=== PATIENT | male | born 1960 | race Caucasian/White ===

== ENCOUNTER → 2017-07-10 | Day surgery (SDC) | payer MEDICARE, OTHER ==
[~2017-07-10] MED LIST: LACTATED RINGERS 1,000 ML IV SCH; LIDOCAINE 1% 20 ML VIAL (10MG/ML) FOR IV START INTRADERMA PRN; LIDOCAINE 1% INJ 10MG/ML (20 ML MDV) ONE; MIDAZOLAM 2 MG/2 ML VIAL ONE; PROPOFOL 10 MG/ML 20 ML VIAL IV ONE
[2017-07-10 07:42] VITALS: TEMP 96.3
[2017-07-10 07:45] LABS: Glucose,Whole Blood 95 mg/dL (75-99)
--- NOTE | 2017-07-10 09:24 | P.PCN ---
Date of Procedure: 07/10/17 Procedure(s) Performed: Procedure: Total colonoscopy and polypectomy. Preoperative diagnosis: Screening for neoplasia, patient has history of polyps. Postoperative diagnosis: 1. Small polyp around the hepatic flexure snared but no large polyps or cancer. 2. Sigmoid diverticulosis with no evidence of acute diverticulitis or strictures. Preparation: HalfLytely prep. Sedation: Was provided by anesthesia. Brief clinical history: The patient is a 56-year-old male who was initially referred for colonoscopy for screening for neoplasia because of history of polyps. On a prior exam in December 2014, when he was still living in [place], 9 polyps removed. Apparently, he had polyps removed as far back as when he started his screening exams at age 48 and he has had these exams every year or so with polyps found each time. On his first exam with me in May 2016, his preparation was poor and that is the reason I suggested we repeat this exam in 1-2 years. At this time, he has no abdominal complaints bleeding or anemia. Procedure: With the patient on his left lateral decubitus position and after informed consent and adequate sedation, the perianal area was inspected and it did not show any fissures or fistulas. There were no masses felt on digital rectal examination. The Olympus CFQ 160L video colonoscope was then inserted in the rectum in the usual fashion and advanced to the cecum. The preparation was much improved compared to last time and I was able to see all areas examined without difficulty. There was a small polyp around the hepatic flexure which was snared and retrieved by suction and there was sigmoid diverticulosis but there was no large polyps or cancer or any evidence of acute diverticulitis or strictures. I retroflexed the endoscope in the rectum before the endoscope was withdrawn. The patient tolerated the procedure well. Plan: Based on his history and in light of the finding today, I am recommending repeat exam in 3 years. He will follow up with you as planned.
[2017-07-10 09:30] VITALS: RESP 18
[2017-07-10 09:31] VITALS: BP 110/70; PULSE 77
== END ==
LOC: ORWHC2ENDO 07:22
DX: Z12.11 Encounter for screening for malignant neoplasm of colon (principal); D12.3 Benign neoplasm of transverse colon; K57.30 Diverticulosis of large intestine without perforation or abscess without bleeding; Z86.010 Personal history of colon polyps; E11.9 Type 2 diabetes mellitus without complications; I10 Essential (primary) hypertension; E78.5 Hyperlipidemia, unspecified; M19.90 Unspecified osteoarthritis, unspecified site; E07.9 Disorder of thyroid, unspecified; Z79.84 Long term (current) use of oral hypoglycemic drugs; Z79.899 Other long term (current) drug therapy; Z72.0 Tobacco use
CPT/HCPCS: 88305; 45385; J2250; J2001; J2704

== ENCOUNTER → 2018-01-09 | Outpatient (CLI) | payer MEDICARE ==
--- NOTE | 2018-01-09 08:49 | CT ---
EXAMINATION TYPE: CT sacrum wo con DATE OF EXAM: 01/09/2018 COMPARISON: None HISTORY: Patient complains of low back pain. CT DLP: 212.2 mGycm Automated exposure control for dose reduction was used. FINDINGS: There is mild degenerative change of the sacroiliac joints with small bridging anterior osteophytes a nd opposing surface sclerosis. No vacuum disc phenomenon or subchondral cystic change. No significant joint space narrowing or widening. No evidence of acute fracture or dislocation of the sacrum. No ev idence of sacroiliac joint fusion. There are mild degenerative changes of the femoral acetabular join t with joint space narrowing and acetabular marginal osteophytes. The iliac bones appear intact as do es the visualized portion of the entirety of the pelvis. Vertebral body height of L5 is maintained. N o healed chronic fracture deformity is present. No suspicious osseous lesion is seen. Mild degenerati ve changes of the lumbosacral junction are noted with at least broad-based disc bulge at L5-S1 result ing in at least moderate bilateral neural foraminal narrowing, this would be better characterized wit h MRI. Similarly at L4-L5 there is at least moderate bilateral neural foraminal narrowing due to dege nerative disc disease. Moderate atherosclerosis is seen of the visualized lower portions of the abdominal aorta and its bran ches. Appendix is seen, air-filled and within normal limits. Left gluteal subcutaneous nerve stimulat or is partially visualized. IMPRESSION: 1. 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 NO SUSPICIOUS OSSEOUS LESION. 2. MODERATE DEGENERATIVE DISC DISEASE IN THE VISUALIZED LUMBOSACRAL SPINE (L4-L5 AND L5-S1) RESULTING IN AT LEAST MODERATE BILATERAL NEURAL FORAMINAL NARROWING AT THESE LEVELS. IF THERE IS FURTHER RODOLFO RN MRI COULD EVALUATE FOR DISC HERNIATION AND BETTER ASSESS DEGREE OF NEURAL FORAMINAL NARROWING/SPIN AL CANAL STENOSIS.
== END | disposition home or self-care (01) ==
LOC: RADCTMAIN 07:51
PROVIDERS: ATTEND Family Medicine
DX: M99.73 Connective tissue and disc stenosis of intervertebral foramina of lumbar region (principal); M51.37 Other intervertebral disc degeneration, lumbosacral region; M25.859 Other specified joint disorders, unspecified hip; M53.3 Sacrococcygeal disorders, not elsewhere classified; G89.29 Other chronic pain
CPT/HCPCS: 72192

== ENCOUNTER 2019-04-27 13:09 | Inpatient (IN) | payer MEDICARE ==
[2019-04-27] MEDS ORDERED: IPRATROPIUM 0.5 MG/2.5 ML NEBU INHALATION STA (13:31)
[2019-04-27] MEDS ORDERED: ALBUTEROL NEBULIZED 2.5 MG/3 ML INHALATION STA (13:31)
--- NOTE | 2019-04-27 14:03 | ED ---
General Adult HPI - General Chief complaint: Chest Pain Stated complaint: PEACE, Sent by PCP Time Seen by Provider: 04/27/19 13:15 Source: patient, RN notes reviewed Mode of arrival: wheelchair Limitations: no limitations - History of Present Illness Initial comments: Is a 58-year-old male who presents emergency Department complaining of shortness of breath. Patient states started about 2 weeks ago. Patient states he flew to the [facility] about 2 months ago at about 2 weeks ago started being short of breath. Patient states returned from the [facility] yesterday and the shortness of breath continues. Patient denies any chest pain or palpitations. Patient denies any fever chills per patient denies any history of any heart problems. Patient states he is a smoker. Patient denies any abdominal pain. Patient denies nausea vomiting diarrhea. Patient denies any lightheadedness dizziness or near syncopal episode. Patient denies any swelling to the legs or calf tenderness. - Related Data Home Medications Medication Instructions Recorded Confirmed QUEtiapine FUMARATE [SEROquel] 200 mg PO HS 04/27/19 04/27/19 Allergies Allergy/AdvReac Type Severity Reaction Status Date / Time No Known Allergies Allergy Verified 04/27/19 14:17 Review of Systems ROS Statement: Those systems with pertinent positive or pertinent negative responses have been documented in the HPI. ROS Other: All systems not noted in ROS Statement are negative. Past Medical History Past Medical History: Diabetes Mellitus, Hyperlipidemia, Hypertension, Osteoarthritis (OA), Thyroid Disorder Additional Past Medical History / Comment(s): HX POLYPS, HX BACK PAIN, HAS IMPLANTED DEVICE FOR PAIN, TMJ HAS BITE SPLINT History of Any Multi-Drug Resistant Organisms: None Reported Past Surgical History: Back Surgery, Orthopedic Surgery, Tonsillectomy Additional Past Surgical History / Comment(s): colonoscopies; shoulder and ankle surgery Past Anesthesia/Blood Transfusion Reactions: No Reported Reaction Past Psychological History: Bipolar Smoking Status: Current every day smoker Past Alcohol Use History: None Reported Past Drug Use History: None Reported - Past Family History Mother Family Medical History: No Reported History General Exam - General Exam Comments Initial Comments: GENERAL: Patient is well-developed and well-nourished. Patient is nontoxic and well- hydrated and is in mild distress. ENT: Neck is soft and supple. No significant lymphadenopathy is noted. Oropharynx is clear. Moist mucous membranes. Neck has full range of motion without eliciting any pain. EYES: The sclera were anicteric and conjunctiva were pink and moist. Extraocular movements were intact and pupils were equal round and reactive to light. E yelids were unremarkable. PULMONARY: Unlabored respirations. Good breath sounds bilaterally. Patient has expiratory wheezing. CARDIOVASCULAR: There is a regular rate and rhythm without any murmurs gallops or rubs. ABDOMEN: Soft and nontender with normal bowel sounds. SKIN: Skin is clear with no lesions or rashes and otherwise unremarkable. NEUROLOGIC: Patient is alert and oriented x3. Cranial nerves II through XII are grossly intact. Motor and sensory are also intact. Normal speech, volume and content. Symmetrical smile. MUSCULOSKELETAL: Normal extremities with adequate strength and full range of motion. LYMPHATICS: No significant lymphadenopathy is noted PSYCHIATRIC: Normal psychiatric evaluation. Limitations: no limitations Course Vital Signs 04/27/19 04/27/19 04/27/19 13:15 13:59 14:19 Temperature 99.0 F Pulse Rate 112 H 106 H 104 H Respiratory 26 H 16 16 Rate Blood Pressure 139/82 147/104 O2 Sat by Pulse 98 99 Oximetry 04/27/19 04/27/19 14:33 16:19 Temperature Pulse Rate 105 H 106 H Respiratory 18 16 Rate Blood Pressure 141/98 O2 Sat by Pulse 96 Oximetry Medical Decision Making - Medical Decision Making EKG shows sinus tachycardia at 106 bpm TX interval 170 QRS 96 QT interval 352 QTC is 467. Patient's EKG shows no ST segment elevation or depression however there is T-wave inversion in V6 Chest x-ray looked like acute pulmonary edema. Patient's d-dimer is elevated so I did a CAT scan and confirmed acute pulmonary edema and there was no sign of any pulmonary embolus. I gave the patient Lasix and Nitropaste. I spoke with Dr. Connell he agreed to admit the patient admitted the patient I wrote admitting her to consult cardiology and continue the Lasix and Nitropaste on the floor. - Lab Data Result diagrams: 04/27/19 14:04 04/27/19 14:04 Lab Results 04/27/19 04/27/19 04/27/19 Range/Units 14:04 14:04 14:04 WBC 6.3 (3.8-10.6) k/uL RBC 4.78 (4.30-5.90) m/uL Hgb 14.1 (13.0-17.5) gm/dL Hct 43.9 (39.0-53.0) % MCV 91.8 (80.0-100.0) fL MCH 29.6 (25.0-35.0) pg MCHC 32.2 (31.0-37.0) g/dL RDW 13.5 (11.5-15.5) % Plt Count 215 (150-450) k/uL Neutrophils % 64 % Lymphocytes % 20 % Monocytes % 5 % Eosinophils % 8 % Basophils % 1 % Neutrophils # 4.0 (1.3-7.7) k/uL Lymphocytes # 1.3 (1.0-4.8) k/uL Monocytes # 0.3 (0-1.0) k/uL Eosinophils # 0.5 (0-0.7) k/uL Basophils # 0.1 (0-0.2) k/uL PT 12.2 H (9.0-12.0) sec INR 1.2 H (<1.2) APTT 23.2 (22.0-30.0) sec D-Dimer 1.09 H (<0.60) mg/L FEU Sodium 140 (137-145) mmol/L Potassium 5.1 (3.5-5.1) mmol/L Chloride 108 H (98-107) mmol/L Carbon Dioxide 22 (22-30) mmol/L Anion Gap 10 mmol/L BUN 19 (9-20) mg/dL Creatinine 1.02 (0.66-1.25) mg/dL Est GFR (CKD-EPI)AfAm >90 (>60 ml/min/1.73 sqM) Est GFR (CKD-EPI)NonAf 80 (>60 ml/min/1.73 sqM) Glucose 102 H (74-99) mg/dL Calcium 9.6 (8.4-10.2) mg/dL Magnesium 1.9 (1.6-2.3) mg/dL Total Bilirubin 1.1 (0.2-1.3) mg/dL AST 49 (17-59) U/L ALT 54 (21-72) U/L Alkaline Phosphatase 113 (38-126) U/L Troponin I (0.000-0.034) ng/mL NT-Pro-B Natriuret Pep pg/mL Total Protein 6.9 (6.3-8.2) g/dL Albumin 3.9 (3.5-5.0) g/dL 04/27/19 04/27/19 Range/Units 14:04 14:04 WBC (3.8-10.6) k/uL RBC (4.30-5.90) m/uL Hgb (13.0-17.5) gm/dL Hct (39.0-53.0) % MCV (80.0-100.0) fL MCH (25.0-35.0) pg MCHC (31.0-37.0) g/dL RDW (11.5-15.5) % Plt Count (150-450) k/uL Neutrophils % % Lymphocytes % % Monocytes % % Eosinophils % % Basophils % % Neutrophils # (1.3-7.7) k/uL Lymphocytes # (1.0-4.8) k/uL Monocytes # (0-1.0) k/uL Eosinophils # (0-0.7) k/uL Basophils # (0-0.2) k/uL PT (9.0-12.0) sec INR (<1.2) APTT (22.0-30.0) sec D-Dimer (<0.60) mg/L FEU Sodium (137-145) mmol/L Potassium (3.5-5.1) mmol/L Chloride (98-107) mmol/L Carbon Dioxide (22-30) mmol/L Anion Gap mmol/L BUN (9-20) mg/dL Creatinine (0.66-1.25) mg/dL Est GFR (CKD-EPI)AfAm (>60 ml/min/1.73 sqM) Est GFR (CKD-EPI)NonAf (>60 ml/min/1.73 sqM) Glucose (74-99) mg/dL Calcium (8.4-10.2) mg/dL Magnesium (1.6-2.3) mg/dL Total Bilirubin (0.2-1.3) mg/dL AST (17-59) U/L ALT (21-72) U/L Alkaline Phosphatase (38-126) U/L Troponin I 0.016 (0.000-0.034) ng/mL NT-Pro-B Natriuret Pep 6800 pg/mL Total Protein (6.3-8.2) g/dL Albumin (3.5-5.0) g/dL Critical Care Time Critical Care Time: Yes Total Critical Care Time: 35 Disposition Clinical Impression: Acute pulmonary edema Disposition: ADMITTED IP TO THIS HOSP Referrals: Meka Pulido MD [Primary Care Provider] - 1-2 days Time of Disposition: 16:50
[2019-04-27 14:21] LABS: Basophils # (A) 0.1 k/uL (0-0.2); Basophils % (A) 1 %; Eosinophils # (A) 0.5 k/uL (0-0.7); Eosinophils % (A) 8 %; HCT 43.9 % (39.0-53.0); HGB 14.1 gm/dL (13.0-17.5); Lymphocytes # (A) 1.3 k/uL (1.0-4.8); Lymphocytes % (A) 20 %; MCH 29.6 pg (25.0-35.0); MCHC 32.2 g/dL (31.0-37.0); MCV 91.8 fL (80.0-100.0); Mean Platelet Volume 8.3; Monocytes # (A) 0.3 k/uL (0-1.0); Monocytes % (A) 5 %; Neutrophils % (A) 64 %; Platelet Count 215 k/uL (150-450); RBC 4.78 m/uL (4.30-5.90); RDW 13.5 % (11.5-15.5); WBC 6.3 k/uL (3.8-10.6)
[2019-04-27 14:34] LABS: INR 1.2 (<1.2); Partial Thromboplastin Time 23.2 sec (22.0-30.0); Prothrombin Time 12.2 sec (9.0-12.0)
[2019-04-27 14:36] LABS: ALT 54 U/L (21-72); AST 49 U/L (17-59); African American GFR (CKD) >90 (>60 ml/min/1.73 sqM); Albumin 3.9 g/dL (3.5-5.0); Alkaline Phosphatase 113 U/L (38-126); Anion Gap 10 mmol/L; Blood Urea Nitrogen 19 mg/dL (9-20); Calcium 9.6 mg/dL (8.4-10.2); Carbon Dioxide 22 mmol/L (22-30); Chloride 108 mmol/L (98-107); Glucose 102 mg/dL (74-99); Magnesium 1.9 mg/dL (1.6-2.3); Potassium 5.1 mmol/L (3.5-5.1); Sodium 140 mmol/L (137-145); Total Bilirubin 1.1 mg/dL (0.2-1.3); Total Protein 6.9 g/dL (6.3-8.2)
[2019-04-27 14:55] LABS: D-Dimer 1.09 mg/L FEU (<0.60)
--- NOTE | 2019-04-27 14:55 | XR ---
EXAMINATION TYPE: XR chest 2V DATE OF EXAM: 04/27/2019 COMPARISON: Prior chest x-ray May 14, 2016 HISTORY: Cough and shortness of breath. TECHNIQUE: Frontal and lateral views of the chest are obtained. FINDINGS: There is spinal stimulator device overlying mid to lower thoracic spinal canal. Cardiac si lhouette size is enlarged. Increased central vascular congestion and interstitial edema is thought pr esent. No pleural effusion or pneumothorax. IMPRESSION: Suspect CHF exacerbation as there is mild cardiomegaly with new central vascular congest ion and mild to moderate interstitial edema. Correlate clinically.
--- NOTE | 2019-04-27 15:36 | CT ---
EXAMINATION TYPE: CT chest angio for PE DATE OF EXAM: 04/27/2019 COMPARISON: NONE HISTORY: SOB, cough, Elevated d-dimer CT DLP: 399.1 mGycm. Automated Exposure Control for Dose Reduction was Utilized. CONTRAST: CTA scan of the thorax is performed with IV Contrast, patient injected with 80 mL of Isovue 370, pulm onary embolism protocol. MIP Images are created on CT scanner and reviewed. FINDINGS: LUNGS: There are geographic groundglass opacities and a moderate right pleural effusion as well as sm all left pleural effusion. These findings in combination with four-chamber cardiomegaly as well as CT findings of right heart failure with reflux of contrast into the inferior vena cava suggest decompen sated congestive heart failure. Nodular opacities are seen in the lingula and left lung base such as on image 82 and most confluent i n the lingula on image 74 infectious etiology such as pneumonia or inflammatory etiology or possible. Diffuse peribronchial cuffing also could be reactive or infectious. Interlobular septal thickening i s present throughout. MEDIASTINUM: There is satisfactory enhancement of the pulmonary artery and its branches, there is no CT evidence for pulmonary embolism. Mediastinal adenopathy is seen with the largest lymph node in the left paratracheal space measuring 2.0 cm in short axis. Other numerous scattered enlarged lymph node s are seen such as in the right paratracheal space measuring 1.8 cm in short axis. There is four-puja munir) cardiomegaly and a small pericardial effusion. Severe coronary calcifications are evident. OTHER: Spleen approaches criteria for splenomegaly measuring 13.5 cm in longitudinal dimension. Trace perihepatic ascites and central mesenteric congestion is seen. Small amount of fluid is also seen ar ound the gallbladder. Old healed anterior right rib fractures and moderate degenerative changes of the spine with bridging anterior osteophytes suggesting diffuse idiopathic skeletal hyperostosis. IMPRESSION: 1. Findings suggesting fluid overload and composition congestive heart failure with diffuse moderate interstitial edema and pleural effusions, right greater than left. 2. Lingular and left basilar reticular nodular opacities. These could be infectious/inflammatory in e tiology on the basis of pneumonia or neoplastic. Follow-up CT is recommended after treatment to asses s for resolution. There is extensive mediastinal adenopathy concerning for neoplastic involvement giv en the size versus reactive adenopathy. These can be recess and the short-term follow-up after treatm ent for pneumonia. 3. Small pericardial effusion and severe coronary artery calcifications, marker of coronary artery di sease. Four chamber cardiomegaly. 4. Trace perihepatic ascites partially visualized and periportal congestion. Some fluid is seen aroun d the gallbladder. Correlate with right upper quadrant pain to determine the need for ultrasound. 5. No evidence of pulmonary embolus.
[2019-04-27] MEDS ORDERED: FUROSEMIDE 10 MG/ML 4 ML VIAL IV STA (15:41)
[2019-04-27] MEDS: NITROGLYCERIN OINT 1 INCH/GM PACKET TOPICAL SCH ×2 (18:47→23:04)
[2019-04-27] MEDS ORDERED: NICOTINE 21MG/24HR PATCH TRANSDERM STA (18:56)
[2019-04-27] MEDS: FUROSEMIDE 10 MG/ML 4 ML VIAL IV SCH (23:04)
[2019-04-27] MEDS: QUEtiapine 200 MG TAB PO SCH (23:04)
[2019-04-28] MEDS: NICOTINE 21MG/24HR PATCH TRANSDERM SCH (08:30)
[2019-04-28] MEDS: NITROGLYCERIN OINT 1 INCH/GM PACKET TOPICAL SCH ×2 (08:30→08:32)
[2019-04-28] MEDS: FUROSEMIDE 10 MG/ML 4 ML VIAL IV SCH ×3 (08:30→22:52)
[2019-04-28 10:17] VITALS: BMI 26.3
[2019-04-28] MEDS: METOPROLOL SUCCINATE (ER) 25 MG TAB.ER.24H PO SCH (12:13)
[2019-04-28] MEDS: LISINOPRIL 5 MG TAB PO SCH (12:13)
[2019-04-28] MEDS ORDERED: ATORVASTATIN 80 MG TAB PO STA (12:49)
[2019-04-28] MEDS ORDERED: ASPIRIN 325 MG TAB PO STA (12:49)
[2019-04-28] MEDS ORDERED: NITROGLYCERIN SL TABS 0.4 MG TAB SUBLINGUAL PRN (12:49)
[2019-04-28] MEDS ORDERED: ALPRAZolam 0.25 MG TAB PO PRN (12:49)
[2019-04-28] MEDS ORDERED: SODIUM CHLORIDE 0.9% 1,000 ML in EMPTY BAG 1 BAG IV ONE ×2 (12:49→14:15)
[2019-04-28] MEDS ORDERED: ALPRAZolam 0.5 MG TAB PO PRN (12:49)
--- NOTE | 2019-04-28 13:14 | CONS ---
CONSULTATION CHIEF COMPLAINT: Shortness of breath. Caden is a 58-year-old gentleman with no significant past medical history who presented to the hospital complaining of shortness of breath. He was in [facility] on business and returned home about 2 to 3 weeks ago. While in [facility] he had episodes of precordial chest pressure, did not want to see the doctor there, subsequently became short of breath. His shortness of breath has gotten progressively worse and yesterday it was severe. Hence, he came to the ER. He was found to be in acute pulmonary edema and is admitted to hospital for the same. He is treated with intravenous Lasix with significant improvement in his symptoms. He has not had any episodes of chest discomfort since being admitted to the hospital. An EKG shows sinus tachycardia with poor R-wave progression suggestive of anteroseptal myocardial infarction. I have ordered an echo and the echo results are pending. Patient had elevated D-dimer on his initial presentation, went on to have a CT scan of the chest that was negative for pulmonary embolism. The patient's clinical presentation is suggestive of recent myocardial infarction with pulmonary edema. I anticipate LV systolic dysfunction on his echocardiogram. I am going to obtain an echo on him. I will review the echocardiogram. In the meantime, I will treat him with beta blockers, MARTA inhibitors and treat him with IV Lasix and start an aspirin. I advised him to undergo cardiac catheterization tomorrow for further evaluation. I have explained risks, benefits and alternatives understood and accepted. PAST MEDICAL HISTORY: Negative for diabetes, hypertension, dyslipidemia. MEDICATIONS: He is on Seroquel. ALLERGIES: None. FAMILY HISTORY: Significant for premature coronary artery disease. SOCIAL HISTORY: Significant for smoking. There is no history of EtOH abuse or drug abuse. REVIEW OF SYSTEMS: HEENT is unremarkable. CARDIAC: As described above. RESPIRATORY: As described above. GI: Negative. GENITOURINARY: Negative. ALLERGY/IMMUNOLOGY: Negative. SKIN: Negative. MUSCULOSKELETAL: Negative. ENDOCRINE: Negative. HEMATOLOGICAL: Negative. DERM: Negative. CONSTITUTIONAL: Negative. ONCOLOGICAL: Negative. Rest of the system review is not relevant. PHYSICAL EXAMINATION: On exam, patient is comfortable at rest. Heart rate is 100 beats per minute. Blood pressure is 118/79. Respiratory rate is 18. O2 sat is 95% on room air. There is no jugular venous distention. Carotid upstroke is normal. There is no bruit. Chest Exam: There are bilateral diffuse rhonchi and basal crackles that have gotten better from yesterday.. Heart exam reveals first and second heart sounds. No gallop. Has a systolic murmur at the apex. Abdomen is soft. Examination of extremities did not reveal any edema. Peripheral pulses are felt. CALENDER INSPECTOR exam did not reveal focal neurological deficits. EKG as described above. Labs showed that the hemoglobin is 14.1, platelet count is 215. Potassium is 5.1. Creatinine is 1. BNP is elevated at 6800. Troponin is 0.016. TSH is not done. AST, ALT are within normal limits. ASSESSMENT: 1. Acute onset pulmonary edema, probably secondary to systolic dysfunction. 2. Abnormal EKG suggestive of anteroseptal myocardial infarction. PLAN: I will continue the patient on aggressive medical therapy. Obtain an echocardiogram. Schedule him for cath. ANDREAS / JIMMY: [id number] /
[2019-04-28 13:29] LABS: Cholesterol 158 mg/dL (<200); HDL Cholesterol 25 mg/dL (40-60); LDL Cholesterol,Calculated 117 mg/dL (0-99); Triglycerides 81 mg/dL (<150)
--- NOTE | 2019-04-28 14:09 | ECHOF ---
Referral Reason:Pulmonary edema MEASUREMENTS -------- HEIGHT: 170.2 cm WEIGHT: 75.7 kg BP: RVIDd: 3.8 cm (< 3.3) IVSd: 0.8 cm (0.6 - 1.1) LVIDd: 5.6 cm (3.9 - 5.3) LVPWd: 1.4 cm (0.6 - 1.1) IVSs: 1.2 cm LVIDs: 5.0 cm LVPWs: 1.6 cm LA Diam: 4.7 cm (2.7 - 3.8) LAESV Index (A-L): 42.84 ml/m Ao Diam: 2.7 cm (2.0 - 3.7) AV Cusp: 1.6 cm (1.5 - 2.6) LA Diam: 4.3 cm (2.7 - 3.8) MV EXCURSION: 14.577 mm (> 18.000) MV EF SLOPE: 93 mm/s (70 - 150) EPSS: 1.7 cm MV E Jaden: 1.03 m/s MV DecT: 99 ms MV A Jaden: 0.02 m/s MV E/A Ratio: 45.64 RAP: 5.00 mmHg RVSP: 25.15 mmHg FINDINGS -------- Sinus rhythm. This was a technically good study. The left ventricle is mildly dilated. Left ventricular wall thickness is normal. There is severe global hypokinesis of LV . Overall left ventricular systolic function is severely impaired with, an EF between 20 - 25 %. The right ventricle is normal in size. The left atrium is markedly dilated. LA is severely dilated >40 ml/m2 The right atrial size is normal. There is mild aortic valve sclerosis. There is no evidence of aortic regurgitation. Mild mitral annular calcification present. [id number] mitral regurgitation is present. Mild tricuspid regurgitation present. Right ventricular systolic pressure is normal at < 35 mmHg. There is no evidence of pulmonary hypertension. There is no pulmonic regurgitation present. The aortic root size is normal. There is no pericardial effusion. CONCLUSIONS -------- 1. Sinus rhythm. 2. This was a technically good study. 3. Left ventricular wall thickness is normal. 4. There is severe global hypokinesis of LV . 5. Overall left ventricular systolic function is severely impaired with, an EF between 20 - 25 %. 6. The right ventricle is normal in size. 7. The left atrium is markedly dilated. 8. LA is severely dilated >40 ml/m2 9. The right atrial size is normal. 10. There is mild aortic valve sclerosis. 11. Mild mitral annular calcification present. 12. [id number] mitral regurgitation is present. 13. Mild tricuspid regurgitation present. 14. Right ventricular systolic pressure is normal at < 35 mmHg. 15. There is no evidence of pulmonary hypertension. 16. There is no pulmonic regurgitation present. 17. The aortic root size is normal. 18. There is no pericardial effusion. BILL CHECKER: Isabella Chapin RDCS
[2019-04-28] MEDS: ASPIRIN 81 MG PO SCH (14:10)
--- NOTE | 2019-04-28 23:48 | P.HPIM ---
History of Present Illness H&P Date: 04/28/19 Chief Complaint: shortness of breath Caden Agosto is a 58 yo M who presents to the ED complaining of 2 week history of shortness of breath and orthopnea. He states he had been traveling in the [facility] and approx 2 weeks ago had an episode of chest pain which lasted approximately 20 mins while he was lifting heavy blocks helping to build a house. He did not see a doctor or have any treatment at that time. He states since then he has felt more winded and has been experiencing progressive shortness of breath. He denies further episodes of chest pain. He is a current 1.5 PPD smoker. In the ED vitals stable, trop negative, BNP [address] chest with bilateral pleural effusions. Review of Systems All systems: negative Constitutional: Reports weakness, Denies chills, Denies fever Eyes: denies blurred vision, denies pain Ears, nose, mouth and throat: Denies headache, Denies sore throat Cardiovascular: Reports chest pain, Reports dyspnea on exertion, Denies shortness of breath Respiratory: Reports dyspnea, Denies cough Gastrointestinal: Denies abdominal pain, Denies diarrhea, Denies nausea, Denies vomiting Musculoskeletal: Denies myalgias Integumentary: Denies pruritus, Denies rash Neurological: Denies numbness, Denies weakness Psychiatric: Denies anxiety, Denies depression Endocrine: Denies fatigue, Denies weight change Past Medical History Past Medical History: Diabetes Mellitus, Hyperlipidemia, Hypertension, Osteoarthritis (OA), Thyroid Disorder Additional Past Medical History / Comment(s): HX POLYPS, HX BACK PAIN, HAS IMPLANTED DEVICE FOR PAIN, TMJ HAS BITE SPLINT. Patient was a type II DM taking metformin, patient lost weight and is no longer taking PO meds or diet controlled. History of Any Multi-Drug Resistant Organisms: None Reported Past Surgical History: Back Surgery, Orthopedic Surgery, Tonsillectomy Additional Past Surgical History / Comment(s): colonoscopies; shoulder and ankle surgery Past Anesthesia/Blood Transfusion Reactions: No Reported Reaction Past Psychological History: Bipolar Smoking Status: Current every day smoker Past Alcohol Use History: None Reported Additional Past Alcohol Use History / Comment(s): SMOKES 1-2 PPD FROM TEEN YEARS Past Drug Use History: None Reported - Past Family History Mother Family Medical History: No Reported History Medications and Allergies Home Medications Medication Instructions Recorded Confirmed Type QUEtiapine FUMARATE [SEROquel] 200 mg PO HS 04/27/19 04/27/19 History Allergies Allergy/AdvReac Type Severity Reaction Status Date / Time No Known Allergies Allergy Verified 04/27/19 14:17 Physical Exam Vitals: Vital Signs Temp Pulse Resp BP Pulse Ox 04/28/19 19:35 98.0 F 92 16 115/76 97 04/28/19 16:56 97.3 F L 98 16 116/83 100 04/28/19 16:00 18 04/28/19 11:49 98.0 F 103 H 18 118/79 95 04/28/19 08:32 98 16 125/78 96 04/28/19 08:26 18 04/28/19 04:00 98.6 F 93 18 110/68 96 04/28/19 00:00 98.4 F 106 H 18 126/81 99 Intake and Output 04/28/19 04/28/19 04/29/19 14:59 22:59 06:59 Intake Total 378 222 Output Total 2200 1400 Balance -1822 -1178 Intake: Oral 378 222 Output: Urine 2200 1400 Other: Voiding Method Toilet Toilet Urinal Urinal # Voids 3 Weight 76.2 kg General: well nourished, well developed, NAD. Vitals reviewed Eyes: PERRL, EOMI, conjunctiva normal HENT: normocephalic, mucus membranes moist Neck: supple, no JVD Lungs: normal respiratory effort, no wheezes. Fine crackles at bases CV: Regular rate and rhythm, systolic murmur. Peripheral pulses 2+ Abdomen: soft, nondistended, no organomegaly Lymph: no cervical or axillary LAD Skin: warm and dry. Neuro: A&Ox3, normal mood and affect Results CBC & Chem 7: 04/27/19 14:04 04/27/19 14:04 Labs: Abnormal Lab Results - Last 24 Hours (Table) 04/27/19 Range/Units 14:04 LDL Cholesterol, Calc 117 H (0-99) mg/dL HDL Cholesterol 25 L (40-60) mg/dL Microbiology - Last 24 Hours (Table) 04/27/19 14:04 Blood Culture - Preliminary Blood No Growth after 24 hours Thrombosis Risk Factor Assmnt - Choose All That Apply Any of the Below Risk Factors Present?: Yes Each Factor Represents 1 point: Obesity (BMI >25) Other Risk Factors: No Other congenital or acquired thrombophilia - If yes, enter type in comment: Yes Thrombosis Risk Factor Assessment Total Risk Factor Score: 1 Thrombosis Risk Factor Assessment Level: Low Risk Assessment and Plan (1) Acute pulmonary edema Current Visit: Yes Status: Acute Code(s): J81.0 - ACUTE PULMONARY EDEMA SNOMED Code(s): 71911752 Plan: 1. Acute pulmonary edema. Suspect recent MA. Cardiology consulted. Pt started on metoprolol, ASA, lipitor, lisinopril. Continue lasix 2. Bipolar. continue seroquel
[2019-04-29] MEDS: QUEtiapine 200 MG TAB PO SCH (03:05)
[2019-04-29] MEDS ORDERED: ATORVASTATIN 80 MG TAB PO ONE (06:00)
[2019-04-29] MEDS ORDERED: ASPIRIN 325 MG TAB PO ONE (06:00)
[2019-04-29] MEDS ORDERED: SODIUM CHLORIDE 0.9% 1,000 ML in EMPTY BAG 1 BAG IV ONE (06:00)
[2019-04-29 06:34] LABS: HCT 48.9 % (39.0-53.0); HGB 16.1 gm/dL (13.0-17.5); MCH 30.2 pg (25.0-35.0); MCHC 32.9 g/dL (31.0-37.0); MCV 91.7 fL (80.0-100.0); Mean Platelet Volume 7.6; Platelet Count 402 k/uL (150-450); RBC 5.33 m/uL (4.30-5.90); RDW 13.4 % (11.5-15.5); WBC 8.6 k/uL (3.8-10.6)
[2019-04-29 06:41] LABS: ALT 41 U/L (21-72); AST 24 U/L (17-59); African American GFR (CKD) >90 (>60 ml/min/1.73 sqM); Albumin 4.3 g/dL (3.5-5.0); Alkaline Phosphatase 109 U/L (38-126); Anion Gap 12 mmol/L; Blood Urea Nitrogen 27 mg/dL (9-20); Calcium 10.4 mg/dL (8.4-10.2); Carbon Dioxide 29 mmol/L (22-30); Chloride 97 mmol/L (98-107); Glucose 103 mg/dL (74-99); Potassium 4.6 mmol/L (3.5-5.1); Sodium 138 mmol/L (137-145); Total Bilirubin 0.8 mg/dL (0.2-1.3); Total Protein 7.7 g/dL (6.3-8.2)
[2019-04-29] MEDS: METOPROLOL SUCCINATE (ER) 25 MG TAB.ER.24H PO SCH (06:44)
[2019-04-29] MEDS: ASPIRIN 81 MG PO SCH (06:45)
[2019-04-29] MEDS: FUROSEMIDE 10 MG/ML 4 ML VIAL IV SCH ×3 (08:04→23:47)
[2019-04-29] MEDS: NICOTINE 21MG/24HR PATCH TRANSDERM SCH (08:04)
[2019-04-29] MEDS ORDERED: IV FLUID CONTINUATION 400 ML IV ONE (09:04)
[2019-04-29] MEDS ORDERED: MIDAZOLAM 2 MG/2 ML VIAL IVP ONE (09:28)
[2019-04-29] MEDS ORDERED: LIDOCAINE 1% INJ 10MG/ML (20 ML MDV) SQ ONE (09:28)
[2019-04-29] MEDS ORDERED: fentaNYL (PF) 50 MCG/ML 2 ML AMP IVP ONE (09:28)
[2019-04-29] MEDS ORDERED: FUROSEMIDE 10 MG/ML 4 ML VIAL IV ONE (09:59)
[2019-04-29] MEDS ORDERED: IOPAMIDOL-370 125ML BTL INJ ONE (10:01)
[2019-04-29] MEDS ORDERED: RX INFO: IV CONTRAST WAS GIVEN 1 EACH MISC MISCELLANE PRN (10:31)
--- NOTE | 2019-04-29 10:32 | CC ---
CARDIAC CATHETERIZATION REPORT INDICATION: Acute pulmonary edema. PROCEDURE NOTE: After obtaining informed consent, left heart catheterization, coronary angiogram are performed via the right femoral artery using standard Khushboo catheters. A femoral angiogram was performed and decision was made for manual hemostasis. The patient has atherosclerotic plaque in the common femoral artery and we opted for manual hemostasis. Patient received moderate conscious sedation. Total sedation time was 21 minutes. PROCEDURE NOTE: After obtaining informed consent, we had to use a Glidewire to traverse across the common iliac vessels and used a long exchange length wire to exchange the catheters in the aorta. FINDINGS: 1. HEMODYNAMICS: Left ventricular end-diastolic pressure is 16-30 mm. There is no significant gradient across the aortic valve. 2. LEFT VENTRICULOGRAM: Left ventriculogram is not performed. 3. ANGIOGRAPHIC DATA: LEFT MAIN CORONARY ARTERY: Left main coronary artery appears calcified but is free of significant stenosis. Divides into left anterior descending coronary artery and circumflex coronary artery. LAD shows a mild atherosclerotic plaque in its proximal and mid portion. Circumflex coronary artery is totally occluded in its proximal part with [id number] collaterals. Right coronary artery is chronically occluded in its midportion with right to right and [id number] collaterals. There is an ostial stenosis in a large septal perforators. CONCLUSION: Three-vessel coronary artery disease with chronic occlusion of the circumflex coronary artery and [place] right coronary artery with extensive [id number] and [id number] collaterals. PLAN: I reviewed angiographic data with Dr. Lainez, the on-call medical administrator, and if he felt that the patient does not have a vessel that can be revascularized with a catheter. He does not have significant CAD involving significant obstructive lesion in the LAD and does not need bypass surgery. He will be managed with optimal medical therapy and hopefully home over the next 24-48 hours. He has severe LV systolic dysfunction and will need a defibrillator. I am going to use he has a defibrillator and if his LV systolic dysfunction persists after 3 months/ MMDEACONL / IJN: [id number] /
[2019-04-29] MEDS: LISINOPRIL 5 MG TAB PO SCH (12:25)
[2019-04-29] MEDS: SODIUM CHLORIDE 0.9% 1,000 ML IV SCH (12:40)
[2019-04-29] MEDS: ATORVASTATIN 80 MG TAB PO SCH (20:51)
[2019-04-29 21:10] LABS: Glucose,Whole Blood 130 mg/dL (75-99)
--- NOTE | 2019-04-29 21:39 | P.PN ---
Subjective Progress Note Date: 04/29/19 Caden Agosto is a 58 yo M who presents to the ED complaining of 2 week history of shortness of breath and orthopnea. He states he had been traveling in the [facility] and approx 2 weeks ago had an episode of chest pain which lasted approximately 20 mins while he was lifting heavy blocks helping to build a house. He did not see a doctor or have any treatment at that time. He states since then he has felt more winded and has been experiencing progressive shortness of breath. He denies further episodes of chest pain. He is a current 1.5 PPD smoker. In the ED vitals stable, trop negative, BNP [address] chest with bilateral pleural effusions. 04/29. Pt is s/p cath today, tired, reports some mild chest discomfort but overall feeling well. His coronary catheterization did not require any interven tion. Objective - Vital Signs Vital signs: Vital Signs Temp 97.9 F 04/29/19 07:45 Pulse 97 04/29/19 16:00 Resp 16 04/29/19 16:00 BP 117/64 04/29/19 16:00 Pulse Ox 95 04/29/19 16:00 Intake & Output 04/29/19 04/29/19 04/30/19 06:59 18:59 06:59 Intake Total 390 280 Output Total 2400 300 Balance -2400 390 -20 Weight 75.8 kg Intake: IV 100 Oral 290 280 Output: Urine 2400 300 Other: Voiding Method Toilet Urinal Urinal - Exam Gen: resting, alert, NAD HEENT: NC, mmm CV: RRR, no murmur, pulses 2+ Lungs: clear throughout Ext: no edema - Labs CBC & Chem 7: 04/29/19 06:01 04/29/19 06:01 Labs: Abnormal Lab Results - Last 24 Hours (Table) 04/29/19 04/29/19 Range/Units 06:01 21:08 Chloride 97 L (98-107) mmol/L BUN 27 H (9-20) mg/dL Glucose 103 H (74-99) mg/dL POC Glucose (mg/dL) 130 H (75-99) mg/dL Calcium 10.4 H (8.4-10.2) mg/dL Microbiology - Last 24 Hours (Table) 04/27/19 14:04 Blood Culture - Preliminary Blood No Growth after 48 hours Assessment and Plan (1) Acute pulmonary edema Current Visit: Yes Status: Acute Code(s): J81.0 - ACUTE PULMONARY EDEMA SNOMED Code(s): 20005886 (2) Acute systolic CHF (congestive heart failure), NYHA class 1 Current Visit: Yes Status: Acute Code(s): I50.21 - ACUTE SYSTOLIC (CONGESTIVE) HEART FAILURE SNOMED Code(s): 339192913 (3) History of NH (myocardial infarction) Current Visit: Yes Status: Acute Code(s): I25.2 - OLD MYOCARDIAL INFARCTION SNOMED Code(s): 461515229 (4) Bipolar disorder in full remission Current Visit: Yes Status: Acute Code(s): F31.70 - BIPOLAR DISORD, CURRENTLY IN REMIS, MOST RECENT EPISODE UNSP SNOMED Code(s): 31070794 Plan: 1. Acute pulmonary edema. Hx recent NH. Acute systolic CHF. Cardiology following. Echo shows EF 20-25%. Continue metoprolol, ASA, lipitor, lisinopril, lasix. Pt s/p cath today 2. Bipolar. continue seroquel
[2019-04-30] MEDS: QUEtiapine 200 MG TAB PO SCH ×2 (00:53→20:36)
[2019-04-30] MEDS: SODIUM CHLORIDE 0.9% 1,000 ML IV SCH ×3 (03:25→20:38)
[2019-04-30] MEDS: ASPIRIN 81 MG PO SCH (08:23)
[2019-04-30] MEDS: METOPROLOL SUCCINATE (ER) 25 MG TAB.ER.24H PO SCH (08:23)
[2019-04-30] MEDS: FUROSEMIDE 10 MG/ML 4 ML VIAL IV SCH ×2 (08:23→20:50)
[2019-04-30] MEDS: NICOTINE 21MG/24HR PATCH TRANSDERM SCH (09:55)
[2019-04-30] MEDS: SPIRONOLACTONE 25 MG TAB PO SCH (09:55)
[2019-04-30] MEDS: FUROSEMIDE 40 MG TAB PO SCH ×2 (09:58→16:47)
--- NOTE | 2019-04-30 10:18 | PN ---
PROGRESS NOTE Caden is a 58-year-old gentleman who was admitted to hospital with acute pulmonary edema. He underwent cardiac catheterization that revealed severe 2 vessel coronary artery disease that we opted to manage medically. Patient is doing better today, shortness of breath has improved. Does not seem to be in pulmonary edema anymore. PHYSICAL EXAM: Comfortable at rest. Vital signs are stable. Chest exam reveals good air entry bilaterally. Heart exam reveals first and second heart sounds. No gallop. No murmur. Abdomen is soft. Exam of the extremities did not reveal any edema. Peripheral pulses are felt. LABS: Show a hemoglobin of 16.1, potassium is 4.6 creatinine is 0.97. ASSESSMENT: 1. Acute onset systolic heart failure. 2. Two-vessel coronary artery disease for medical therapy. 3. Ischemic cardiomyopathy with severe LV dysfunction. PLAN: I am going to switch the Lasix to p.o. Continue the beta blockers, MARTA inhibitors. Add Aldactone. Continue the aspirin and Lipitor. Hopefully home tomorrow. I am going to have a life vest on him prior to discharge. If his LV function does not improve in 3 months, he will need an AICD. MMDEACONL / JUANN: [id number] /
[2019-04-30 12:13] LABS: Glucose,Whole Blood 168 mg/dL (75-99)
[2019-04-30] MEDS: LISINOPRIL 5 MG TAB PO SCH (16:47)
[2019-04-30 17:22] LABS: Glucose,Whole Blood 134 mg/dL (75-99)
[2019-04-30] MEDS: ATORVASTATIN 80 MG TAB PO SCH (20:36)
[2019-04-30 20:51] LABS: Glucose,Whole Blood 117 mg/dL (75-99)
--- NOTE | 2019-04-30 22:30 | P.PN ---
Subjective Progress Note Date: 04/30/19 Caden Agosto is a 58 yo M who presents to the ED complaining of 2 week history of shortness of breath and orthopnea. He states he had been traveling in the [facility] and approx 2 weeks ago had an episode of chest pain which lasted approximately 20 mins while he was lifting heavy blocks helping to build a house. He did not see a doctor or have any treatment at that time. He states since then he has felt more winded and has been experiencing progressive shortness of breath. He denies further episodes of chest pain. He is a current 1.5 PPD smoker. In the ED vitals stable, trop negative, BNP [address] chest with bilateral pleural effusions. 04/29. Pt is s/p cath today, tired, reports some mild chest discomfort but overall feeling well. His coronary catheterization did not require any interven tion. 04/30. Pt continues to feel well, denies chest pain or shortness of breath. He is hemodynamically stable today, lasix switched to po. Objective - Vital Signs Vital signs: Vital Signs Temp 97.9 F 04/30/19 20:15 Pulse 92 04/30/19 20:15 Resp 16 04/30/19 20:15 BP 95/55 04/30/19 20:15 Pulse Ox 96 04/30/19 20:15 Intake & Output 04/30/19 04/30/19 05/01/19 06:59 18:59 06:59 Intake Total 280 1880 Output Total 1625 1000 Balance -1345 880 Weight 73.4 kg Intake: Oral 280 1880 Output: Urine 1625 1000 Other: Voiding Method Urinal Urinal Urinal # Voids 3 - Exam Gen: resting, alert, NAD HEENT: NC, mmm CV: RRR, no murmur, pulses 2+ Lungs: clear throughout Ext: no edema - Labs CBC & Chem 7: 04/29/19 06:01 04/29/19 06:01 Labs: Abnormal Lab Results - Last 24 Hours (Table) 04/30/19 04/30/19 04/30/19 Range/Units 12:11 17:02 20:50 POC Glucose (mg/dL) 168 H 134 H 117 H (75-99) mg/dL Microbiology - Last 24 Hours (Table) 04/27/19 14:04 Blood Culture - Preliminary Blood No Growth after 72 hours Assessment and Plan (1) Acute pulmonary edema Current Visit: Yes Status: Acute Code(s): J81.0 - ACUTE PULMONARY EDEMA SNOMED Code(s): 36261318 (2) Acute systolic CHF (congestive heart failure), NYHA class 1 Current Visit: Yes Status: Acute Code(s): I50.21 - ACUTE SYSTOLIC (CONGESTIVE) HEART FAILURE SNOMED Code(s): 097875337 (3) History of NC (myocardial infarction) Current Visit: Yes Status: Acute Code(s): I25.2 - OLD MYOCARDIAL INFARCTION SNOMED Code(s): 971730444 (4) Bipolar disorder in full remission Current Visit: Yes Status: Acute Code(s): F31.70 - BIPOLAR DISORD, CURRENTLY IN REMIS, MOST RECENT EPISODE UNSP SNOMED Code(s): 61117747 Plan: 1. Acute pulmonary edema. Hx recent NC. Acute systolic CHF. Cardiology following. Echo shows EF 20-25%. Continue metoprolol, ASA, lipitor, lisinopril, lasix. Discharge planning in progress for tomorrow 2. Bipolar. continue seroquel
[2019-05-01 01:10] VITALS: RESP 18
[2019-05-01 04:51] VITALS: TEMP 97.7
[2019-05-01 05:52] LABS: Glucose,Whole Blood 99 mg/dL (75-99)
[2019-05-01 06:48] LABS: HCT 51.5 % (39.0-53.0); HGB 16.7 gm/dL (13.0-17.5); MCH 29.8 pg (25.0-35.0); MCHC 32.5 g/dL (31.0-37.0); MCV 91.7 fL (80.0-100.0); Mean Platelet Volume 7.7; Platelet Count 332 k/uL (150-450); RBC 5.62 m/uL (4.30-5.90); RDW 13.5 % (11.5-15.5); WBC 10.1 k/uL (3.8-10.6)
[2019-05-01 06:59] LABS: African American GFR (CKD) >90 (>60 ml/min/1.73 sqM); Anion Gap 9 mmol/L; Blood Urea Nitrogen 39 mg/dL (9-20); Carbon Dioxide 31 mmol/L (22-30); Chloride 100 mmol/L (98-107); Glucose 97 mg/dL (74-99); Potassium 5.1 mmol/L (3.5-5.1); Sodium 140 mmol/L (137-145)
[2019-05-01 09:01] VITALS: BP 125/75; PULSE 94
[2019-05-01] MEDS: FUROSEMIDE 40 MG TAB PO SCH (09:16)
[2019-05-01] MEDS: METOPROLOL SUCCINATE (ER) 25 MG TAB.ER.24H PO SCH (09:16)
[2019-05-01] MEDS: NICOTINE 21MG/24HR PATCH TRANSDERM SCH (09:16)
[2019-05-01] MEDS: SPIRONOLACTONE 25 MG TAB PO SCH (09:16)
[2019-05-01] MEDS: ASPIRIN 81 MG PO SCH (09:16)
--- NOTE | 2019-05-01 11:36 | P.DS ---
Providers Date of admission: 04/28/19 21:17 Attending physician: Surendra Connell MD Consults: 04/27/19 16:53 Consult Physician Routine Consulting Provider: [facility] Consult Reason/Comments: Acute pulmonary edema Do you want consulting provider notified?: Yes Primary care physician: Meka Pulido Hospital Course: Patient is admitted for gram chest pain acute pulmonary edema. Patient appears to have unstable angina and underwent cardiac catheterization which showed chronic occlusion of 2 coronary vessels. Please refer to documentation from cardiology for further details. Patient is found to have ejection fraction of 20% patient is not in heart failure exacerbation at this time patient is euvolemic patient may have acute systolic dysfunction from acute myocardial infarction. Patient didn't undergo stenting as patient has chronic occlusion. Patient is being discharged on medications for coronary artery disease and the heart failure medications along with LifeVest patient may end up needing ACD placement down the line. Had excessive discussion with the patient explained his condition. Patient is medically stable to be discharged no more chest pain. PHYSICAL EXAMINATION: GENERAL: The patient is alert and oriented x3, not in any acute distress. Well developed, well nourished. HEENT: Pupils are round and equally reacting to light. EOMI. No scleral icterus. No conjunctival pallor. Normocephalic, atraumatic. No pharyngeal erythema. No thyromegaly. CARDIOVASCULAR: S1 and S2 present. No murmurs, rubs, or gallops. PULMONARY: Chest is clear to auscultation, no wheezing or crackles. ABDOMEN: Soft, nontender, nondistended, normoactive bowel sounds. No palpable organomegaly. MUSCULOSKELETAL: No joint swelling or deformity. EXTREMITIES: No cyanosis, clubbing, or pedal edema. NEUROLOGICAL: Gross neurological examination did not reveal any focal deficits. SKIN: No rashes. -Acute systolic dysfunction heart failure with acute exacerbation on admission presently euvolemic patient will be discharged on MARTA inhibitor low-dose Lasix along with Aldactone. Recheck basic metabolic profile in 3-4 days -Ischemic cardiomyopathy -Coronary artery disease severe 2 vessel disease medical management -Hyperlipidemia - Continued nicotine abuse: Counseling was provided -Bipolar disorder Plan - Discharge Summary Discharge Rx Participant: No New Discharge Prescriptions: New Spironolactone [Aldactone] 25 mg PO DAILY #30 tab Aspirin 81 mg PO DAILY #30 chew Furosemide [Lasix] 20 mg PO BID@0900,1600 #60 tab Atorvastatin [Lipitor] 80 mg PO HS #30 tab Nitroglycerin Sl Tabs [Nitrostat] 0.4 mg SUBLINGUAL Q5M PRN #30 tab PRN Reason: Chest Pain Metoprolol Succinate (ER) [Toprol XL] 25 mg PO DAILY #30 tab.er.24h Lisinopril [Zestril] 5 mg PO Q24H #30 tab Clopidogrel Bisulfate [Plavix] 75 mg PO DAILY #30 tab Continue QUEtiapine FUMARATE [SEROquel] 200 mg PO HS Discharge Medication List QUEtiapine FUMARATE [SEROquel] 200 mg PO HS 04/27/19 [History] Aspirin 81 mg PO DAILY #30 chew 05/01/19 [Rx] Atorvastatin [Lipitor] 80 mg PO HS #30 tab 05/01/19 [Rx] Clopidogrel Bisulfate [Plavix] 75 mg PO DAILY #30 tab 05/01/19 [Rx] Furosemide [Lasix] 20 mg PO BID@0900,1600 #60 tab 05/01/19 [Rx] Lisinopril [Zestril] 5 mg PO Q24H #30 tab 05/01/19 [Rx] Metoprolol Succinate (ER) [Toprol XL] 25 mg PO DAILY #30 tab.er.24h 05/01/19 [Rx] Nitroglycerin Sl Tabs [Nitrostat] 0.4 mg SUBLINGUAL Q5M PRN #30 tab 05/01/19 [Rx] Spironolactone [Aldactone] 25 mg PO DAILY #30 tab 05/01/19 [Rx] Follow up Appointment(s)/Referral(s): Meka Pulido MD [Primary Care Provider] - 3 Days (Please call your primary physicians office Friday morning for a hospital follow up appointment. ) Marco Antonio Reyes MD [STAFF PHYSICIAN] - 05/10/19 10:45 am (Corrective Therapist. Please bring photo ID, insurance card and a list of current medications. ) Patient Instructions/Handouts: Heart Failure (DC), Left Heart Catheterization (DC), How to Stop Smoking (DC), Heart Healthy Diet (DC) Discharge Disposition: HOME SELF-CARE Care Plan Goals (MU): Activity limited until follow up with veterinary virus serum inspector. Heart healthy diet Wear lifevest as directed by physician. CARDIAC CATH 1. Support your puncture site by applying firm, steady pressure whenever you cough, laugh, sneeze or bear down to have a bowel movement (2-day restriction). 2. Watch for any excessive bruising, active bleeding, a firm knot forming under your skin, extreme tenderness and signs of infection (redness, swelling, fever). 3. Shower daily, do not soak puncture in a tub bath, jacuzzi, pool, richards etc. for 1 week. This is to prevent risk of infection. 4. Drink plenty of fluids the day of and day after your procedure to flush contrast dye out of your kidneys. 5. Take all medications as directed. Never stop any new medication without your physicians OK. 6. No driving for 2 days after procedure. 7. 10- pound weight lifting restriction for 1 week. 8. Low sodium/low fat diet. 9. Activity limited until follow up appointment with your veterinary virus serum inspector. In case of any problems, please call [facility], Karma Leos @ [phone]. CHF 1. Weigh yourself every morning after you urinate. If you gain 2-3 pounds overnight or 5 pounds in one week, call your primary physician for guidance on your medications. Keep a log of your weights. 2. Avoid salt, or foods with hidden salt. Extra salt makes your heart work harder and traps the fluid in your body for longer. 3. Take all of your medications as directed, especially your water pills. NEVER skip a dose. 4. Elevate your legs when you are not up moving around to help with circulation and prevent swelling. 5. Call your physician if you notice any extra swelling in your legs, ankles, feet or abdomen, if you have a new dry cough, if your shortness of breath worsens with activity or at rest, or if you feel more fatigued.
--- NOTE | 2019-05-01 17:53 | PN ---
PROGRESS NOTE Caden was admitted to the hospital with acute pulmonary edema and underwent cardiac catheterization. He has severe 2 vessel coronary artery disease for which we advised medical therapy. The patient has severe LV systolic dysfunction and has a life vest on. This morning he is doing well and is free of symptoms. Denies chest pain, difficulty in breathing or palpitations. EXAM: Comfortable at rest. Vital signs are stable. Chest exam reveals good air entry bilaterally. I do not hear any crackles or rhonchi. Heart exam reveals first and second heart sounds. No gallop. Exam of extremities did not reveal any edema. Peripheral pulses are felt. The patient on discharge was on Zestril 5 daily, Lasix 20 b.i.d., Plavix 75 daily, aspirin, Aldactone 25 mg daily and Lipitor. ASSESSMENT: 1. Acute pulmonary edema. 2. Ischemic cardiomyopathy with severe LV dysfunction. 3. Two-vessel coronary artery disease, on medical therapy. PLAN: Patient will continue with current medications and he will continue with current medications. Will follow up with me in a week's time. ANDREAS / JIMMY: [id number] /
== END 2019-05-01 12:28 | disposition home or self-care (01) | DRG 286 ==
LOC: EC 13:09 → 3SCARD 16:53 → INTOOBSV 16:53 → OBSVTOIN 04-28 21:17
PROVIDERS: ADMIT Family Medicine; ATTEND Family Medicine
PROC: 4A023N7 Measurement of Cardiac Sampling and Pressure, Left Heart, Percutaneous Approach (ICD-10-PCS; principal; 2019-04-29 13:45)
PROC: B2111ZZ Fluoroscopy of Multiple Coronary Arteries using Low Osmolar Contrast (ICD-10-PCS; principal; 2019-04-29 13:45)
DX: I11.0 Hypertensive heart disease with heart failure (principal); I50.21 Acute systolic (congestive) heart failure; I25.82 Chronic total occlusion of coronary artery; I25.110 Atherosclerotic heart disease of native coronary artery with unstable angina pectoris; I25.5 Ischemic cardiomyopathy; I70.201 Unspecified atherosclerosis of native arteries of extremities, right leg; I25.2 Old myocardial infarction; E11.9 Type 2 diabetes mellitus without complications; E78.5 Hyperlipidemia, unspecified; F31.70 Bipolar disorder, currently in remission, most recent episode unspecified; E07.9 Disorder of thyroid, unspecified; M54.9 Dorsalgia, unspecified; M19.90 Unspecified osteoarthritis, unspecified site; M26.609 Unspecified temporomandibular joint disorder, unspecified side; Z86.010 Personal history of colon polyps; F17.210 Nicotine dependence, cigarettes, uncomplicated; Z71.6 Tobacco abuse counseling; Z79.84 Long term (current) use of oral hypoglycemic drugs; Z79.899 Other long term (current) drug therapy; Z96.9 Presence of functional implant, unspecified; Z98.890 Other specified postprocedural states; Z82.49 Family history of ischemic heart disease and other diseases of the circulatory system
CPT/HCPCS: 36415; 71046; 71275; 80048; 80053; 80061; 83735; 83880; 84484; 85025; 85027; 85379; 85610; 85730; 87040; 93005; 93306; 93458; 94640; 96374; 99291

== ENCOUNTER → 2020-01-17 | Outpatient (CLI) | payer MEDICARE ==
--- NOTE | 2020-01-17 15:39 | XR ---
EXAMINATION TYPE: XR lumbar spine 2 or 3V DATE OF EXAM: 01/17/2020 COMPARISON: None HISTORY: Pain and tenderness lumbar region TECHNIQUE: Three-view lumbar spine FINDINGS: There 5 lumbar-type vertebral bodies. Pedicles are intact. There is narrowing of the L5-S1 disc height. Remaining disc heights are preserved. Vertebral body heights are preserved. Very minimal spondylosis is within the mid to lower lumbar spine. IMPRESSION: 1. Degenerative disc changes L5-S1
--- NOTE | 2020-01-17 15:39 | XR ---
EXAMINATION TYPE: XR pelvis AP view DATE OF EXAM: 01/17/2020 COMPARISON: None HISTORY: Pain in lumbar region TECHNIQUE: AP pelvis FINDINGS: Femoral heads articulate with the acetabulum. Sacroiliac joints and symphysis pubis are nor mal. No acute fractures or dislocations are evident. IMPRESSION: 1. No acute osseous abnormality pelvis
== END ==
LOC: RADXRMAIN 14:25
PROVIDERS: ATTEND Chiropractor
DX: M51.37 Other intervertebral disc degeneration, lumbosacral region (principal); M54.41 Lumbago with sciatica, right side; M62.830 Muscle spasm of back
CPT/HCPCS: 72100; 72170

== ENCOUNTER 2020-08-08 14:07 | Emergency (ER) | payer MEDICARE ==
[2020-08-08 14:11] VITALS: RESP 18
--- NOTE | 2020-08-08 14:29 | ED ---
General Adult HPI - General Chief complaint: Shortness of Breath Stated complaint: Rule out PE Time Seen by Provider: 08/08/20 14:12 Source: patient, RN notes reviewed, old records reviewed Mode of arrival: ambulatory Limitations: no limitations - History of Present Illness Initial comments: 59-year-old male history of CAD presenting for evaluation of cough and dyspnea. Cough is productive at times. He does have a history of tobacco use and is currently smoking. No history of asthma or COPD. No history DVT or PE. He was sent in by his primary care physician to rule out pulmonary embolism. He's had 2 weeks of symptoms. He denies central chest pain. Denies fever. - Related Data Home Medications Medication Instructions Recorded Confirmed QUEtiapine FUMARATE [SEROquel] 200 mg PO HS 04/27/19 04/27/19 Previous Rx's Medication Instructions Recorded Aspirin 81 mg PO DAILY #30 chew 05/01/19 Atorvastatin [Lipitor] 80 mg PO HS #30 tab 05/01/19 Clopidogrel Bisulfate [Plavix] 75 mg PO DAILY #30 tab 05/01/19 Furosemide [Lasix] 20 mg PO BID@0900,1600 #60 tab 05/01/19 Metoprolol Succinate (ER) [Toprol 25 mg PO DAILY #30 tab.er.24h 05/01/19 XL] Nitroglycerin Sl Tabs [Nitrostat] 0.4 mg SUBLINGUAL Q5M PRN #30 tab 05/01/19 Spironolactone [Aldactone] 25 mg PO DAILY #30 tab 05/01/19 lisinopriL [Zestril] 5 mg PO Q24H #30 tab 05/01/19 oxyCODONE-APAP 10-325MG [Percocet 1 tab PO Q4HR PRN 3 Days #18 tab 01/18/20 10-325 mg] Albuterol Inhaler [Ventolin Hfa 2 puff INHALATION RT-QID #1 unit 08/08/20 Inhaler] predniSONE 50 mg PO DAILY #5 tab 08/08/20 Allergies Allergy/AdvReac Type Severity Reaction Status Date / Time No Known Allergies Allergy Verified 08/08/20 14:11 Review of Systems ROS Statement: Those systems with pertinent positive or pertinent negative responses have been documented in the HPI. ROS Other: All systems not noted in ROS Statement are negative. 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 Patient was a type II DM taking metformin, patient lost weight and is no longer taking PO meds or diet controlled. History of Any Multi-Drug Resistant Organisms: None Reported Past Surgical History: Back Surgery, Heart Catheterization With Stent, Orthopedic Surgery, Tonsillectomy Additional Past Surgical History / Comment(s): colonoscopies; shoulder and ankle surgery Past Anesthesia/Blood Transfusion Reactions: No Reported Reaction Past Psychological History: Bipolar Smoking Status: Current every day smoker Past Alcohol Use History: None Reported Past Drug Use History: None Reported - Past Family History Mother Family Medical History: No Reported History General Exam Limitations: no limitations General appearance: alert, in no apparent distress Head exam: Present: atraumatic, normocephalic Eye exam: Present: normal appearance, PERRL ENT exam: Present: normal exam Neck exam: Present: normal inspection. Absent: tenderness, meningismus Respiratory exam: Present: normal lung sounds bilaterally. Absent: respiratory distress, wheezes, rales, rhonchi Cardiovascular Exam: Present: regular rate, normal rhythm GI/Abdominal exam: Present: soft. Absent: distended, tenderness, guarding Extremities exam: Present: normal inspection, normal capillary refill. Absent: pedal edema, calf tenderness Neurological exam: Present: alert, oriented X3, CN II-XII intact. Absent: motor sensory deficit Psychiatric exam: Present: normal affect, normal mood Skin exam: Present: warm, dry, intact. Absent: cyanosis, diaphoretic Course Vital Signs 08/08/20 14:08 Temperature 97.7 F Pulse Rate 95 Respiratory 18 Rate Blood Pressure 142/94 O2 Sat by Pulse 99 Oximetry EKG Findings - EKG Comments: EKG Findings:: EKG: Sinus tachycardia, biatrial enlargement, rate of 102, RI interval 168, QRS duration 102, QTC 463, no ST segment elevation Medical Decision Making - Medical Decision Making 59-year-old male with 2 weeks of cough and dyspnea. Sent in for rule out PE. Patient does have EKG showing sinus rhythm, he has a normal CBC, normal CPK, negative troponin, mildly elevated BNP at 1600. CT was performed which is negative for pulmonary embolism, showing mild cardiomegaly, as well as changes consistent with asthma or bronchitis. I did discuss case with the patient's primary care physician Dr. Pulido, she will see the patient in her office for outpatient follow-up in 2 days. Patient given albuterol, steroids. He will return with worsening or changing symptoms. - Lab Data Result diagrams: 08/08/20 14:35 08/08/20 14:35 Lab Results 08/08/20 08/08/20 08/08/20 Range/Units 14:35 14:35 14:35 WBC 5.2 (3.8-10.6) k/uL RBC 5.27 (4.30-5.90) m/uL Hgb 15.9 (13.0-17.5) gm/dL Hct 47.4 (39.0-53.0) % MCV 90.0 (80.0-100.0) fL MCH 30.3 (25.0-35.0) pg MCHC 33.6 (31.0-37.0) g/dL RDW 13.5 (11.5-15.5) % Plt Count 193 (150-450) k/uL MPV 9.6 Neutrophils % 55 % Lymphocytes % 31 % Monocytes % 7 % Eosinophils % 4 % Basophils % 1 % Neutrophils # 2.9 (1.3-7.7) k/uL Lymphocytes # 1.6 (1.0-4.8) k/uL Monocytes # 0.4 (0-1.0) k/uL Eosinophils # 0.2 (0-0.7) k/uL Basophils # 0.1 (0-0.2) k/uL PT 11.2 (9.0-12.0) sec INR 1.1 (<1.2) APTT 22.6 (22.0-30.0) sec Sodium 139 (137-145) mmol/L Potassium 4.6 (3.5-5.1) mmol/L Chloride 105 (98-107) mmol/L Carbon Dioxide 26 (22-30) mmol/L Anion Gap 8 mmol/L BUN 17 (9-20) mg/dL Creatinine 1.01 (0.66-1.25) mg/dL Est GFR (CKD-EPI)AfAm >90 (>60 ml/min/1.73 sqM) Est GFR (CKD-EPI)NonAf 80 (>60 ml/min/1.73 sqM) Glucose 118 H (74-99) mg/dL Calcium 9.6 (8.4-10.2) mg/dL Total Bilirubin 0.8 (0.2-1.3) mg/dL AST 21 (17-59) U/L ALT 25 (4-49) U/L Alkaline Phosphatase 85 (38-126) U/L Troponin I (0.000-0.034) ng/mL NT-Pro-B Natriuret Pep pg/mL Total Protein 7.2 (6.3-8.2) g/dL Albumin 4.4 (3.5-5.0) g/dL 08/08/20 08/08/20 Range/Units 14:35 14:35 WBC (3.8-10.6) k/uL RBC (4.30-5.90) m/uL Hgb (13.0-17.5) gm/dL Hct (39.0-53.0) % MCV (80.0-100.0) fL MCH (25.0-35.0) pg MCHC (31.0-37.0) g/dL RDW (11.5-15.5) % Plt Count (150-450) k/uL MPV Neutrophils % % Lymphocytes % % Monocytes % % Eosinophils % % Basophils % % Neutrophils # (1.3-7.7) k/uL Lymphocytes # (1.0-4.8) k/uL Monocytes # (0-1.0) k/uL Eosinophils # (0-0.7) k/uL Basophils # (0-0.2) k/uL PT (9.0-12.0) sec INR (<1.2) APTT (22.0-30.0) sec Sodium (137-145) mmol/L Potassium (3.5-5.1) mmol/L Chloride (98-107) mmol/L Carbon Dioxide (22-30) mmol/L Anion Gap mmol/L BUN (9-20) mg/dL Creatinine (0.66-1.25) mg/dL Est GFR (CKD-EPI)AfAm (>60 ml/min/1.73 sqM) Est GFR (CKD-EPI)NonAf (>60 ml/min/1.73 sqM) Glucose (74-99) mg/dL Calcium (8.4-10.2) mg/dL Total Bilirubin (0.2-1.3) mg/dL AST (17-59) U/L ALT (4-49) U/L Alkaline Phosphatase (38-126) U/L Troponin I <0.012 (0.000-0.034) ng/mL NT-Pro-B Natriuret Pep 1670 pg/mL Total Protein (6.3-8.2) g/dL Albumin (3.5-5.0) g/dL Disposition Clinical Impression: Acute bronchitis Disposition: HOME SELF-CARE Condition: Good Instructions (If sedation given, give patient instructions): Acute Bronchitis (ED) Prescriptions: predniSONE 50 mg PO DAILY #5 tab Albuterol Inhaler [Ventolin Hfa Inhaler] 2 puff INHALATION RT-QID #1 unit Is patient prescribed a controlled substance at d/c from ED?: No Referrals: Meka Pulido MD [Primary Care Provider] - 1-2 days Time of Disposition: 15:55
[2020-08-08 14:47] LABS: Basophils # (A) 0.1 k/uL (0-0.2); Basophils % (A) 1 %; Eosinophils # (A) 0.2 k/uL (0-0.7); Eosinophils % (A) 4 %; HCT 47.4 % (39.0-53.0); HGB 15.9 gm/dL (13.0-17.5); Lymphocytes # (A) 1.6 k/uL (1.0-4.8); Lymphocytes % (A) 31 %; MCH 30.3 pg (25.0-35.0); MCHC 33.6 g/dL (31.0-37.0); Mean Platelet Volume 9.6; Monocytes # (A) 0.4 k/uL (0-1.0); Monocytes % (A) 7 %; Neutrophils # (A) 2.9 k/uL (1.3-7.7); Neutrophils % (A) 55 %; Platelet Count 193 k/uL (150-450); RBC 5.27 m/uL (4.30-5.90); RDW 13.5 % (11.5-15.5); WBC 5.2 k/uL (3.8-10.6)
[2020-08-08 14:55] LABS: INR 1.1 (<1.2); Prothrombin Time 11.2 sec (9.0-12.0)
[2020-08-08 14:56] LABS: Partial Thromboplastin Time 22.6 sec (22.0-30.0)
[2020-08-08 15:01] LABS: ALT 25 U/L (4-49); AST 21 U/L (17-59); African American GFR (CKD) >90 (>60 ml/min/1.73 sqM); Albumin 4.4 g/dL (3.5-5.0); Alkaline Phosphatase 85 U/L (38-126); Anion Gap 8 mmol/L; Blood Urea Nitrogen 17 mg/dL (9-20); Calcium 9.6 mg/dL (8.4-10.2); Carbon Dioxide 26 mmol/L (22-30); Chloride 105 mmol/L (98-107); Glucose 118 mg/dL (74-99); Non-African American GFR(CKD) 80 (>60 ml/min/1.73 sqM); Potassium 4.6 mmol/L (3.5-5.1); Sodium 139 mmol/L (137-145); Total Bilirubin 0.8 mg/dL (0.2-1.3); Total Protein 7.2 g/dL (6.3-8.2)
--- NOTE | 2020-08-08 15:35 | CT ---
EXAMINATION TYPE: CT chest angio for PE DATE OF EXAM: 08/08/2020 COMPARISON: 04/27/2019 HISTORY: 59-year-old male Shortness of breath for 2 weeks. TECHNIQUE: Contiguous axial scanning of the chest performed with IV Contrast, patient injected with 1 00 mL of Isovue 370. Coronal/sagittal MIP reconstructions performed. CT DLP: 554.1 mGycm Automated exposure control for dose reduction was used. FINDINGS: Left anterior chest wall AICD generator with right ventricular lead. Heart is upper limits of normal in size without pericardial effusion. No flattening of the interventr icular septum reflux of contrast into the hepatic veins. Scattered three-vessel coronary artery calci fications are present. Aorta normal caliber with mild atherosclerotic arch calcifications and conventional chest branching a natomy. Scattered right paratracheal lymph nodes measuring up to 2.3 x 1.0 cm or smaller as compared to 2.8 x 1.5 cm, previously. Lower left paratracheal lymph node also smaller currently measuring 1.2 cm short axis versus 2.0 cm, previously. AP window and right greater than left hilar lymphadenopathy similarl y shows decreasing size though residual soft tissue remains. Satisfactory opacification of the pulmonary arterial system without evidence for pulmonary embolus. Mild septal lines in the lungs. Mosaic attenuation is noted in the lower lungs along with mild diffus e bronchial wall thickening. No pleural effusion or consolidation. Tiny hiatal hernia. Visualized upper abdomen shows no specific abnormality. Bones: Spinal stimulator array within the mid thoracic spinal canal. DISH within the mid and lower th oracic spine. IMPRESSION: 1. NO EVIDENCE FOR PULMONARY EMBOLUS. 2. BORDERLINE HEART SIZE WITH SEPTAL LINES IN THE LUNGS WHICH COULD REFLECT MILD PULMONARY VASCULAR C ONGESTION. 3. HOWEVER, IN ADDITION, THERE IS BRONCHIAL WALL THICKENING AND MOSAIC ATTENUATION IN THE LOWER LUNGS WHICH MAY BE SEEN WITH SMALL AIRWAYS DISEASE SUCH BRONCHITIS OR ASTHMA. 4. REDEMONSTRATED MEDIASTINAL AND HILAR LYMPHADENOPATHY THOUGH DECREASED IN SIZE FROM 04/27/2019. MEME ELATE FOR ANY KNOWN UNDERLYING DIAGNOSIS SUCH SARCOIDOSIS. PULMONARY REFERRAL IF NO ESTABLISHED DI AGNOSIS. THE FACT THAT THESE LYMPH NODES HAVE DECREASED IN SIZE MAKES METASTATIC DISEASE UNLIKELY.
[2020-08-08 16:12] VITALS: BP 142/88; PULSE 98; TEMP 97.9
== END 2020-08-08 16:12 | disposition home or self-care (01) ==
LOC: EC 14:07
DX: J20.9 Acute bronchitis, unspecified (principal); I25.10 Atherosclerotic heart disease of native coronary artery without angina pectoris; I11.0 Hypertensive heart disease with heart failure; I50.9 Heart failure, unspecified; I25.2 Old myocardial infarction; E11.9 Type 2 diabetes mellitus without complications; E78.5 Hyperlipidemia, unspecified; F31.9 Bipolar disorder, unspecified; F17.200 Nicotine dependence, unspecified, uncomplicated; Z79.899 Other long term (current) drug therapy; Z95.5 Presence of coronary angioplasty implant and graft
CPT/HCPCS: 36415; 71275; 80053; 83880; 84484; 85025; 85610; 85730; 93005; 99285

== ENCOUNTER → 2021-05-23 | Outpatient (CLI) | payer MEDICARE ==
--- NOTE | 2021-05-23 13:18 | CT ---
EXAMINATION TYPE: CT chest wo con DATE OF EXAM: 05/23/2021 COMPARISON: 08/08/2020 HISTORY: abnormal EKG CT DLP: 447.[address] of the chest was performed with lung and mediastinal window settings submitted. The la ck of contrast limits evaluation of the vascular, mediastinal and parenchymal structures including th e upper abdomen. LUNGS: The lungs are clear and free of infiltrate. No atelectasis. No pulmonary nodule or mass is de tected. No pleural effusion. No CT evidence of interstitial lung disease. MEDIASTINUM/GUNJAN: Thoracic aorta is of normal caliber with limited evaluation given lack of contrast . The heart is enlarged. Coronary artery calcifications noted. No evidence for mediastinal mass. No lymph nodes greater than 1cm. UPPER ABDOMEN: No significant abnormality is seen. OTHER: No significant other abnormality. IMPRESSION: 1. There is evidence of cardiomegaly. No evidence for overt failure. No focal infiltrates seen.
== END | disposition home or self-care (01) ==
LOC: RADCTMAIN 12:41
PROVIDERS: ATTEND Family Medicine
DX: R94.31 Abnormal electrocardiogram [ECG] [EKG] (principal)
CPT/HCPCS: 71250

== ENCOUNTER 2021-07-15 08:52 | Emergency (ER) | payer MEDICARE ==
[2021-07-15 09:02] VITALS: BP 171/89; PULSE 102; RESP 20; TEMP 97.8
--- NOTE | 2021-07-15 09:50 | ED ---
Recheck HPI - General Chief Complaint: Recheck/Abnormal Lab/Rx Stated Complaint: Covid Test Time Seen by Provider: 07/15/21 09:00 Source: patient Mode of arrival: ambulatory Limitations: no limitations - History of Present Illness Initial Comments: 60-year-old male presents to the emergency department requesting covid testing. He is flying to the [facility] tomorrow and needs a negative tests for travel. Denies having any symptoms or exposures. - Related Data Home Medications Medication Instructions Recorded Confirmed QUEtiapine FUMARATE [SEROquel] 200 mg PO HS 04/27/19 07/04/21 Furosemide [Lasix] 20 mg PO DAILY 07/04/21 07/04/21 Potassium Chloride [K-Tab ER] 10 meq PO DAILY 07/04/21 07/04/21 Previous Rx's Medication Instructions Recorded Atorvastatin [Lipitor] 80 mg PO HS #30 tab 05/01/19 Clopidogrel Bisulfate [Plavix] 75 mg PO DAILY #30 tab 05/01/19 Spironolactone [Aldactone] 25 mg PO DAILY #30 tab 05/01/19 lisinopriL [Zestril] 5 mg PO Q24H #30 tab 05/01/19 Allergies Allergy/AdvReac Type Severity Reaction Status Date / Time No Known Allergies Allergy Verified 07/15/21 09:02 Review of Systems ROS Statement: Those systems with pertinent positive or pertinent negative responses have been documented in the HPI. ROS Other: All systems not noted in ROS Statement are negative. 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 Patient was a type II DM taking metformin, patient lost weight and is no longer taking PO meds or diet controlled. Last Myocardial Infarction Date:: 2018 History of Any Multi-Drug Resistant Organisms: None Reported Past Surgical History: AICD, Back Surgery, Heart Catheterization With Stent, Orthopedic Surgery, Tonsillectomy Additional Past Surgical History / Comment(s): colonoscopies; shoulder and ankle surgery. PRIOR HHX STATED PT HAD A PAIN PUMP-PT DENIES EVERY HAVING ONE. Past Anesthesia/Blood Transfusion Reactions: No Reported Reaction Date of Last Stent Placement:: 2018 Type of Cardiac Device: AICD Device Placement Date:: 2018 Past Psychological History: Bipolar Smoking Status: Current every day smoker Past Alcohol Use History: None Reported Past Drug Use History: None Reported - Past Family History Mother Family Medical History: No Reported History General Exam Limitations: no limitations General appearance: alert, in no apparent distress Head exam: Present: atraumatic, normocephalic, normal inspection Eye exam: Present: normal appearance, PERRL, EOMI. Absent: scleral icterus, conjunctival injection, periorbital swelling ENT exam: Present: normal exam, mucous membranes moist Neck exam: Present: normal inspection. Absent: tenderness, meningismus, lymphadenopathy Respiratory exam: Present: normal lung sounds bilaterally. Absent: respiratory distress, wheezes, rales, rhonchi, stridor Cardiovascular Exam: Present: regular rate, normal rhythm, normal heart sounds. Absent: systolic murmur, diastolic murmur, rubs, gallop, clicks GI/Abdominal exam: Present: soft, normal bowel sounds. Absent: distended, tenderness, guarding, rebound, rigid Extremities exam: Present: normal inspection, full ROM, normal capillary refill. Absent: tenderness, pedal edema, joint swelling, calf tenderness Back exam: Present: normal inspection Neurological exam: Present: alert, oriented X3, CN II-XII intact Psychiatric exam: Present: normal affect, normal mood Skin exam: Present: warm, dry, intact, normal color. Absent: rash Course Vital Signs 07/15/21 08:59 Temperature 97.8 F Pulse Rate 102 H Respiratory 20 Rate Blood Pressure 171/89 O2 Sat by Pulse 100 Oximetry Medical Decision Making - Medical Decision Making Patient is swabbed for Covid and testing is negative. Patient given copies of his results. Patient to return for any new or worsening symptoms. Patient discharged home stable condition - Lab Data Lab Results 07/15/21 Range/Units 09:04 Coronavirus (PCR) Not Detected (Not Detectd) Disposition Clinical Impression: Lab test negative for COVID-19 virus Disposition: HOME SELF-CARE Condition: Stable Instructions (If sedation given, give patient instructions): Normal Exam (ED) Additional Instructions: Please follow up with your primary care doctor in 2-4 days. Return to the emergency room for any new or worsening symptoms Is patient prescribed a controlled substance at d/c from ED?: No Referrals: Meka Pulido MD [Primary Care Provider] - 1-2 days Time of Disposition: 09:50
== END 2021-07-15 10:11 | disposition home or self-care (01) ==
LOC: EC 08:52
DX: Z20.822 Contact with and (suspected) exposure to COVID-19 (principal); I25.10 Atherosclerotic heart disease of native coronary artery without angina pectoris; I11.0 Hypertensive heart disease with heart failure; E11.9 Type 2 diabetes mellitus without complications; I25.2 Old myocardial infarction; E78.5 Hyperlipidemia, unspecified; I50.9 Heart failure, unspecified; M19.90 Unspecified osteoarthritis, unspecified site; F31.9 Bipolar disorder, unspecified; F17.200 Nicotine dependence, unspecified, uncomplicated; Z79.84 Long term (current) use of oral hypoglycemic drugs; Z79.899 Other long term (current) drug therapy
CPT/HCPCS: 87635; 99282

== ENCOUNTER 2022-04-11 12:57 | Inpatient (IN) | payer MEDICARE ==
--- NOTE | 2022-04-11 13:30 | ED ---
SOB HPI - General Chief Complaint: Shortness of Breath Stated Complaint: fluid in stomach Time Seen by Provider: 04/11/22 13:10 Source: patient Mode of arrival: ambulatory Limitations: no limitations - History of Present Illness Initial Comments: 61-year-old male with past medical history of coronary artery disease, congestive heart failure, diabetes who presents to the emergency department with shortness of breath. States that he has been short of breath for a period of time however it has been getting worse. He reports that he has to sit down fr equently to catch his breath. No chest pain. Last night he was unable to taste his food and therefore made an appointment with his primary care doctor today. I did test him for Covid which was negative. They were concerned about his increased work of breathing and therefore recommended that he come to the emergency department. Patient states he was recommended to him that he needed a paracentesis for large abdomen. He denies history of liver failure or history of paracenteses. Does admit to history of congestive heart failure with need for hospitalization and diuresis. No reported thoracenteses. He denies any fevers, chills or cough. Follows with Dr. Ackerman who he saw in office earlier this week and received a [email or web address]. He does take Lasix 20 mg 3 times a day. States he has been taking his medications without any missed doses. Denies any peripheral swelling. No other alleviating, precipitating or modifying factors - Related Data Home Medications Medication Instructions Recorded Confirmed QUEtiapine FUMARATE [SEROquel] 200 mg PO HS 04/27/19 04/11/22 Albuterol Sulfate [Albuterol 2 puff PO RT-Q6H PRN 04/11/22 04/11/22 Sulfate Hfa] Clopidogrel [Plavix] 75 mg PO DIRECTED 04/11/22 04/11/22 Ipratropium-Albuterol Nebulize 3 ml INHALATION RT-Q4H PRN 04/11/22 04/11/22 [Duoneb 0.5 mg-3 mg/3 ml Soln] Metoprolol Succinate (ER) [Toprol 25 mg PO DAILY 04/11/22 04/11/22 XL] Nitroglycerin Sl Tabs [Nitrostat] 0.4 mg SUBLINGUAL DIRECTED PRN 04/11/22 04/11/22 Potassium Chloride [Potassium 10 meq PO DIRECTED 04/11/22 04/11/22 Chloride ER] QUEtiapine FUMARATE [SEROquel] 200 mg PO DAILY PRN 04/11/22 04/11/22 Spironolactone [Aldactone] 25 mg PO DIRECTED 04/11/22 04/11/22 Umeclidinium Brm/Vilanterol Tr 1 puff INHALATION RT-DAILY 04/11/22 04/11/22 [Anoro Ellipta 62.5-25 Mcg INH] lisinopriL [Zestril] 5 mg PO DIRECTED 04/11/22 04/11/22 Previous Rx's Medication Instructions Recorded Furosemide [Lasix] 40 mg PO BID #60 tab 04/14/22 Allergies Allergy/AdvReac Type Severity Reaction Status Date / Time No Known Allergies Allergy Verified 04/11/22 15:08 Review of Systems ROS Statement: Those systems with pertinent positive or pertinent negative responses have been documented in the HPI. ROS Other: All systems not noted in ROS Statement are negative. 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 Patient was a type II DM taking metformin, patient lost weight and is no longer taking PO meds or diet controlled. Last Myocardial Infarction Date:: 2018 History of Any Multi-Drug Resistant Organisms: None Reported Past Surgical History: AICD, Back Surgery, Heart Catheterization With Stent, Orthopedic Surgery, Tonsillectomy Additional Past Surgical History / Comment(s): colonoscopies; shoulder and ankle surgery. PRIOR HHX STATED PT HAD A PAIN PUMP-PT DENIES EVERY HAVING ONE. Past Anesthesia/Blood Transfusion Reactions: No Reported Reaction Date of Last Stent Placement:: 2018 Type of Cardiac Device: AICD Device Placement Date:: 2018 Past Psychological History: Bipolar Smoking Status: Current every day smoker Past Alcohol Use History: None Reported Past Drug Use History: None Reported - Past Family History Mother Family Medical History: No Reported History General Exam Limitations: no limitations General appearance: alert, in no apparent distress Head exam: Present: atraumatic, normocephalic, normal inspection Eye exam: Present: normal appearance, PERRL, EOMI. Absent: scleral icterus, conjunctival injection, periorbital swelling ENT exam: Present: normal exam, mucous membranes moist Neck exam: Present: normal inspection. Absent: tenderness, meningismus, lymphadenopathy Respiratory exam: Present: rales, other (Tachypnea). Absent: respiratory distress, wheezes, rhonchi, stridor Cardiovascular Exam: Present: regular rate, normal rhythm, normal heart sounds. Absent: systolic murmur, diastolic murmur, rubs, gallop, clicks GI/Abdominal exam: Present: soft, normal bowel sounds. Absent: distended, tenderness, guarding, rebound, rigid Extremities exam: Present: normal inspection, full ROM, normal capillary refill. Absent: tenderness, pedal edema, joint swelling, calf tenderness Back exam: Present: normal inspection Neurological exam: Present: alert, oriented X3, CN II-XII intact Psychiatric exam: Present: normal affect, normal mood Skin exam: Present: warm, dry, intact, normal color. Absent: rash Course Vital Signs 04/11/22 04/11/22 04/11/22 13:00 16:28 16:46 Temperature 97.4 F L Pulse Rate 96 93 98 Respiratory 26 H 18 18 Rate Blood Pressure 124/77 133/89 136/89 O2 Sat by Pulse 98 98 98 Oximetry Medical Decision Making - Medical Decision Making Upon arrival the patient is placed in room 11. A thorough history and physical exam was performed. Patient does have tachypnea. IV access is established and laboratory studies are conducted. Troponin is 0.035. BNP 5230. Chest x-ray demonstrates cardio medically with mild central vascular congestion. CT of the abdomen and pelvis is performed for abdominal distention which demonstrates right heart dysfunction. Fluid overload state. Congestion of the liver and. Portal edema. Small volume ascites. Diffuse anasarca. Right pleural effusion. Pericardial effusion. Cardiomegaly and pulmonary edema. Patient was given a dose of Lasix. Recommended admission for cardiology and pulmonology consultatio n. Spoke with Dr. Gomez who was agreeable to admission. - Lab Data Result diagrams: 04/12/22 07:28 04/14/22 08:47 Lab Results 04/11/22 04/11/22 04/11/22 Range/Units 13:53 13:53 13:53 WBC 6.6 (3.8-10.6) k/uL RBC 5.18 (4.30-5.90) m/uL Hgb 14.9 (13.0-17.5) gm/dL Hct 46.8 (39.0-53.0) % MCV 90.3 (80.0-100.0) fL MCH 28.8 (25.0-35.0) pg MCHC 31.9 (31.0-37.0) g/dL RDW 15.4 (11.5-15.5) % Plt Count 169 (150-450) k/uL MPV 11.3 Neutrophils % 72 % Lymphocytes % 15 % Monocytes % 8 % Eosinophils % 2 % Basophils % 2 % Neutrophils # 4.8 (1.3-7.7) k/uL Lymphocytes # 1.0 (1.0-4.8) k/uL Monocytes # 0.5 (0-1.0) k/uL Eosinophils # 0.1 (0-0.7) k/uL Basophils # 0.1 (0-0.2) k/uL Hypochromasia Moderate PT 14.8 H (9.0-12.0) sec INR 1.4 H (<1.2) APTT 22.1 (22.0-30.0) sec Sodium 141 (137-145) mmol/L Potassium 4.6 (3.5-5.1) mmol/L Chloride 103 (98-107) mmol/L Carbon Dioxide 25 (22-30) mmol/L Anion Gap 13 mmol/L BUN 31 H (9-20) mg/dL Creatinine 1.26 H (0.66-1.25) mg/dL Est GFR (CKD-EPI)AfAm 70 (>60 ml/min/1.73 sqM) Est GFR (CKD-EPI)NonAf 60 (>60 ml/min/1.73 sqM) Glucose 103 H (74-99) mg/dL Plasma Lactic Acid Joseph (0.7-2.0) mmol/L Calcium 9.2 (8.4-10.2) mg/dL Total Bilirubin 1.9 H (0.2-1.3) mg/dL AST 52 (17-59) U/L ALT 76 H (4-49) U/L Alkaline Phosphatase 113 (38-126) U/L Troponin I (0.000-0.034) ng/mL NT-Pro-B Natriuret Pep pg/mL Total Protein 6.8 (6.3-8.2) g/dL Albumin 4.4 (3.5-5.0) g/dL 04/11/22 04/11/22 04/11/22 Range/Units 13:53 13:53 14:57 WBC (3.8-10.6) k/uL RBC (4.30-5.90) m/uL Hgb (13.0-17.5) gm/dL Hct (39.0-53.0) % MCV (80.0-100.0) fL MCH (25.0-35.0) pg MCHC (31.0-37.0) g/dL RDW (11.5-15.5) % Plt Count (150-450) k/uL MPV Neutrophils % % Lymphocytes % % Monocytes % % Eosinophils % % Basophils % % Neutrophils # (1.3-7.7) k/uL Lymphocytes # (1.0-4.8) k/uL Monocytes # (0-1.0) k/uL Eosinophils # (0-0.7) k/uL Basophils # (0-0.2) k/uL Hypochromasia PT (9.0-12.0) sec INR (<1.2) APTT (22.0-30.0) sec Sodium (137-145) mmol/L Potassium (3.5-5.1) mmol/L Chloride (98-107) mmol/L Carbon Dioxide (22-30) mmol/L Anion Gap mmol/L BUN (9-20) mg/dL Creatinine (0.66-1.25) mg/dL Est GFR (CKD-EPI)AfAm (>60 ml/min/1.73 sqM) Est GFR (CKD-EPI)NonAf (>60 ml/min/1.73 sqM) Glucose (74-99) mg/dL Plasma Lactic Acid Joseph 1.0 (0.7-2.0) mmol/L Calcium (8.4-10.2) mg/dL Total Bilirubin (0.2-1.3) mg/dL AST (17-59) U/L ALT (4-49) U/L Alkaline Phosphatase (38-126) U/L Troponin I 0.035 H* (0.000-0.034) ng/mL NT-Pro-B Natriuret Pep 5230 pg/mL Total Protein (6.3-8.2) g/dL Albumin (3.5-5.0) g/dL - EKG Data EKG Comments: EKG demonstrates sinus rhythm with a rate of 96. VT interval 174. QRS 109. QTC of 427. No acute ST segment elevations or depressions Disposition Clinical Impression: Acute pulmonary edema, Acute exacerbation of CHF (congestive heart failure), Pericardial effusion, Pleural effusion, NSTEMI (non-ST elevated myocardial infarction) Disposition: ADMITTED IP TO THIS HOSP Condition: Serious Is patient prescribed a controlled substance at d/c from ED?: No Time of Disposition: 16:13 Decision to Admit Reason: Admit from EC Decision Date: 04/11/22 Decision Time: 16:13
[2022-04-11 13:58] LABS: Basophils # (A) 0.1 k/uL (0-0.2); Basophils % (A) 2 %; Eosinophils # (A) 0.1 k/uL (0-0.7); Eosinophils % (A) 2 %; HCT 46.8 % (39.0-53.0); HGB 14.9 gm/dL (13.0-17.5); Hypochromasia Moderate; Lymphocytes % (A) 15 %; MCH 28.8 pg (25.0-35.0); MCHC 31.9 g/dL (31.0-37.0); MCV 90.3 fL (80.0-100.0); Mean Platelet Volume 11.3; Monocytes # (A) 0.5 k/uL (0-1.0); Monocytes % (A) 8 %; Neutrophils # (A) 4.8 k/uL (1.3-7.7); Neutrophils % (A) 72 %; Platelet Count 169 k/uL (150-450); RBC 5.18 m/uL (4.30-5.90); RDW 15.4 % (11.5-15.5); WBC 6.6 k/uL (3.8-10.6)
[2022-04-11 14:07] LABS: Albumin 4.4 g/dL (3.5-5.0); Calcium 9.2 mg/dL (8.4-10.2); Potassium 4.6 mmol/L (3.5-5.1); Total Bilirubin 1.9 mg/dL (0.2-1.3); Total Protein 6.8 g/dL (6.3-8.2)
[2022-04-11 14:24] LABS: INR 1.4 (<1.2); Partial Thromboplastin Time 22.1 sec (22.0-30.0); Prothrombin Time 14.8 sec (9.0-12.0)
--- NOTE | 2022-04-11 14:32 | XR ---
EXAMINATION TYPE: XR chest 2V DATE OF EXAM: 04/11/2022 COMPARISON: Chest CT May 23, 2021 HISTORY: Difficulty in breathing. TECHNIQUE: Frontal and lateral views of the chest are obtained. FINDINGS: There is mild cardiomegaly with single lead pacemaker/defibrillator. Mild central vascular congestion thought present on current study. No suspicious focal airspace opacity, pleural effusion , or pneumothorax seen bilaterally. Multilevel spurring in thoracic spine. IMPRESSION: Cardiomegaly with mild central vascular congestion. Correlate for CHF exacerbation.
--- NOTE | 2022-04-11 15:21 | CT ---
EXAMINATION TYPE: CT abdomen pelvis w con CT DLP: 1580.2 mGycm, Automated exposure control for dose reduction was used. DATE OF EXAM: 04/11/2022 3:07 PM COMPARISON: CT lumbar spine 01/10/2020, CTA chest 08/08/2020, CT sacrum 01/09/2018. CLINICAL INDICATION:Male, 61 years old with history of abdominal distension, shortness of breath; abd ominal pain and bloating TECHNIQUE: Standard CT of the abdomen and pelvis following the administration of 100 cc of Isovue 3 70 IV contrast material. Coronal and sagittal reformats were performed. FINDINGS: LOWER CHEST: Partially visualized small to moderate size right pleural effusion. Cardiomegaly demonst rated. Trace pericardial effusion bibasilar patchy groundglass opacities. Reflux of contrast into the IVC. ABDOMEN LIVER: Diffuse heterogenous attenuation. Periportal edema. GALLBLADDER AND BILE DUCTS: Trace pericholecystic fluid. Gallbladder is not significantly distended. PANCREAS: Unremarkable. SPLEEN: Unremarkable. ADRENAL GLANDS: Unremarkable. KIDNEYS AND URETERS: No evidence of hydronephrosis or renal calculus. The kidneys enhance symmetrical ly. Left mid kidney exophytic cyst. PELVIS BLADDER: Unremarkable REPRODUCTIVE: Unremarkable. ABDOMEN & PELVIS STOMACH AND BOWEL: Stomach is unremarkable. Small 1 cm lipoma within the second/third portion of the duodenum. Distal scattered colonic diverticulosis without evidence for acute diverticulitis. The appe ndix is within normal limits. No evidence of bowel obstruction. No pneumatosis or portal venous gas. PERITONEUM: No evidence of pneumoperitoneum. Small volume ascites throughout the abdomen and pelvis. VASCULATURE: Moderate atherosclerotic calcifications are present throughout the abdominal aorta and i ts branches. No evidence of aortic aneurysm. MUSCULOSKELETAL: No acute osseous abnormalities. Degenerative changes of the visualized spine. LYMPH NODES: No gross evidence for lymphadenopathy. SOFT TISSUE/ABDOMINAL WALL: Mild diffuse anasarca. Spinal stimulator leads identified extending towar ds the thoracic spinal canal level. IMPRESSION: 1. Findings consistent with right heart dysfunction and fluid overload state including passive conge stion of the liver with periportal edema, small volume ascites, diffuse anasarca, right pleural effus ion, pericardial effusion, cardiomegaly, and pulmonary edema. 2. Trace pericholecystic fluid without significant distended gallbladder. This is likely related to #1. If there is continued clinical concern, this could be evaluated with abdominal ultrasound. 3. Colonic diverticulosis without evidence for acute diverticulitis.
[2022-04-11] MEDS ORDERED: FUROSEMIDE 10 MG/ML 4 ML VIAL IV STA (16:05)
[2022-04-11] MEDS ORDERED: NALOXONE 0.4 MG/ML 1 ML VIAL IV PRN (16:15)
[2022-04-11] MEDS: FUROSEMIDE 10 MG/ML 4 ML VIAL IV SCH (19:58)
[2022-04-11 20:14] LABS: Glucose,Whole Blood 106 mg/dL (70-110)
[2022-04-11] MEDS ORDERED: IPRATROPIUM-ALBUTEROL 3 ML NEB INHALATION PRN (21:08)
[2022-04-11] MEDS ORDERED: QUEtiapine 200 MG TAB PO PRN (21:08)
[2022-04-11] MEDS: SPIRONOLACTONE 25 MG TAB PO SCH (21:32)
[2022-04-11] MEDS: CLOPIDOGREL 75 MG TAB PO SCH (21:32)
[2022-04-11] MEDS: lisinopriL 5 MG TAB PO SCH (21:32)
[2022-04-11] MEDS: QUEtiapine 200 MG TAB PO SCH ×2 (21:32→22:53)
[2022-04-12 07:57] LABS: Basophils % (A) 0 %; Eosinophils # (A) 0.1 k/uL (0-0.7); Eosinophils % (A) 3 %; HGB 14.6 gm/dL (13.0-17.5); Hypochromasia Slight; Lymphocytes # (A) 1.1 k/uL (1.0-4.8); Lymphocytes % (A) 22 %; MCH 28.4 pg (25.0-35.0); MCHC 31.7 g/dL (31.0-37.0); MCV 89.7 fL (80.0-100.0); Mean Platelet Volume 10.7; Monocytes # (A) 0.5 k/uL (0-1.0); Monocytes % (A) 9 %; Neutrophils # (A) 3.4 k/uL (1.3-7.7); Neutrophils % (A) 64 %; Platelet Count 168 k/uL (150-450); RBC 5.13 m/uL (4.30-5.90); RDW 15.4 % (11.5-15.5); WBC 5.2 k/uL (3.8-10.6)
[2022-04-12] MEDS ORDERED: FORMOTEROL FUMARATE 20 MCG/2 ML NEBU INHALATION SCH (08:00)
[2022-04-12] MEDS ORDERED: IPRATROPIUM 0.5 MG/2.5 ML NEBU INHALATION SCH (08:00)
[2022-04-12 08:09] LABS: Potassium 4.4 mmol/L (3.5-5.1)
[2022-04-12] MEDS: SPIRONOLACTONE 25 MG TAB PO SCH (08:53)
[2022-04-12] MEDS: FUROSEMIDE 10 MG/ML 4 ML VIAL IV SCH ×2 (08:53→22:00)
[2022-04-12] MEDS: METOPROLOL SUCCINATE (ER) 25 MG TAB.ER.24H PO SCH (08:54)
[2022-04-12] MEDS: lisinopriL 5 MG TAB PO SCH (08:54)
[2022-04-12] MEDS: CLOPIDOGREL 75 MG TAB PO SCH (08:54)
--- NOTE | 2022-04-12 11:16 | P.CRDCN ---
History of Present Illness History of present illness: HISTORY OF PRESENT ILLNESS: This is a 61 year old male with a past medical history significant for coronary artery disease, ischemic cardiomyopathy with AICD implantation, congestive heart failure, hypertension, hyperlipidemia, and nicotine dependence. Patient follows in the office with Dr. Reyes. We have been asked to see the patient in consultation for CHF. Patient examined at the bedside. Patient presented to the hospital with a chief complaint of shortness of breath. Patient was found to be in congestive heart failure with an IV Lasix. Patient is also found to have an acute COPD exacerbation. He denies chest pain or pressure. He reports mild shortness of breath this morning. Denies dizziness or lightheadedness. Denies nausea or vomiting. Vital signs are stable. Patient reports he is currently smoking 2-4 cigarettes a day. * EKG reveals sinus mechanism with no signs of acute ischemia * Chest xray cardiomegaly with mild central vascular congestion. Correlate for CHF exacerbation. * Laboratory data: WBC 5.2. Hemoglobin 14.6. Platelet count 168. Sodium 139. Potassium 4.4 BUN 31. Creatinine 1.23. Troponin 0.035. 0.034. 0.033. * Current home cardiac medications include Plavix 75 mg daily, lisinopril 5 mg daily, Aldactone 25 mg daily, Lasix 20 mg 3 times a day and metoprolol succinate 25 mg daily * Most recent echocardiogram obtained in and revealed ejection fraction 25% * Cardiac catheterization history: April 2019: 3 vessel coronary artery disease with chronic occlusion of the circumflex coronary artery and [place] right coronary artery with extensive left to left and left to right collaterals REVIEW OF SYSTEMS: At the time of my exam: CONSTITUTIONAL: Denies fever or chills. HEENT: Denies blurred vision, vision changes, or eye pain. Denies hemoptysis CARDIOVASCULAR: Denies chest pain. Denies orthopnea. Denies PND. Denies palpitations RESPIRATORY: Denies shortness of breath. GASTROINTESTINAL: Denies abdominal pain. Denies nausea or vomiting. HEMATOLOGIC: Denies bleeding disorders. GENITOURINARY: Denies any blood in urine. SKIN: Denies pruitis. Denies rash. PHYSICAL EXAM: VITAL SIGNS: Reviewed. GENERAL: Well-developed in no acute distress. HEENT: Head is normocephalic. Pupils are equal, round. Sclerae anicteric. Mucous membranes of the mouth are moist. Neck supple. No JVD or thyromegaly LUNGS: Respirations even and unlabored. Lungs with a few crackles at the bases and expiratory wheezing noted. HEART: Regular rate and rhythm. S1 and S2 heard. ABDOMEN: Soft. Nondistended. Nontender. EXTREMITIES: Normal range of motion. No clubbing or cyanosis. Peripheral pulses intact. No lower extremity edema NEUROLOGIC: Awake and alert. Oriented x 3. ASSESSMENT: Shortness of breath Acute on chronic heart failure with reduced EF Acute COPD exacerbation Coronary artery disease Ischemic cardiomyopathy with history of AICD implantation Hypertension Hyperlipidemia Nicotine dependence PLAN: Obtain 2D echo to assess cardiac structure and function Resume home cardiac medications Continue IV lasix Accurate I&O, daily weights, and monitoring of kidney function Further recommendations pending patient course Nurse practitioner note has been reviewed by physician. Signing provider agrees with the documented findings, assessment, and plan of care. 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 Patient was a type II DM taking metformin, patient lost weight and is no longer taking PO meds or diet controlled. Last Myocardial Infarction Date:: 2018 History of Any Multi-Drug Resistant Organisms: None Reported Past Surgical History: AICD, Back Surgery, Heart Catheterization With Stent, Orthopedic Surgery, Tonsillectomy Additional Past Surgical History / Comment(s): colonoscopies; shoulder and ankle surgery. PRIOR HHX STATED PT HAD A PAIN PUMP-PT DENIES EVERY HAVING ONE. Past Anesthesia/Blood Transfusion Reactions: No Reported Reaction Date of Last Stent Placement:: 2018 Type of Cardiac Device: AICD Device Placement Date:: 2018 Past Psychological History: Bipolar Smoking Status: Current every day smoker Past Alcohol Use History: None Reported Past Drug Use History: None Reported - Past Family History Mother Family Medical History: No Reported History Medications and Allergies Home Medications Medication Instructions Recorded Confirmed Type QUEtiapine FUMARATE [SEROquel] 200 mg PO HS 04/27/19 04/11/22 History Albuterol Sulfate [Albuterol 2 puff PO RT-Q6H PRN 04/11/22 04/11/22 History Sulfate Hfa] Clopidogrel [Plavix] 75 mg PO DIRECTED 04/11/22 04/11/22 History Furosemide [Lasix] 20 mg PO TID 04/11/22 04/11/22 History Ipratropium-Albuterol Nebulize 3 ml INHALATION RT-Q4H PRN 04/11/22 04/11/22 History [Duoneb 0.5 mg-3 mg/3 ml Soln] Metoprolol Succinate (ER) [Toprol 25 mg PO DAILY 04/11/22 04/11/22 History Xl] Nitroglycerin Sl Tabs [Nitrostat] 0.4 mg SUBLINGUAL DIRECTED PRN 04/11/22 04/11/22 History Potassium Chloride [Potassium 10 meq PO DIRECTED 04/11/22 04/11/22 History Chloride ER] QUEtiapine FUMARATE [SEROquel] 200 mg PO DAILY PRN 04/11/22 04/11/22 History Spironolactone [Aldactone] 25 mg PO DIRECTED 04/11/22 04/11/22 History Umeclidinium Brm/Vilanterol Tr 1 puff INHALATION RT-DAILY 04/11/22 04/11/22 History [Anoro Ellipta 62.5-25 Mcg INH] lisinopriL [Zestril] 5 mg PO DIRECTED 04/11/22 04/11/22 History Allergies Allergy/AdvReac Type Severity Reaction Status Date / Time No Known Allergies Allergy Verified 04/11/22 15:08 Physical Exam Vitals: Vital Signs Temp Pulse Pulse Resp BP BP Pulse Ox 04/12/22 07:57 96 04/12/22 07:50 92 04/12/22 07:42 92 04/12/22 03:53 97.9 F 94 22 118/65 98 04/12/22 01:33 91 20 04/11/22 23:36 91 20 137/88 98 04/11/22 20:00 98 20 04/11/22 19:47 97.6 F 98 20 128/71 98 04/11/22 19:23 96 04/11/22 18:18 97.2 F L 96 16 132/82 96 04/11/22 16:46 98 18 136/89 98 04/11/22 16:28 93 18 133/89 98 04/11/22 13:00 97.4 F L 96 26 H 124/77 98 Intake and Output 04/11/22 04/12/22 04/12/22 22:59 06:59 14:59 Intake Total 500 Output Total 300 2100 Balance -300 -1600 Intake: Oral 500 Output: Urine 300 2100 Other: Voiding Method Urinal Urinal Weight 98.883 kg 94.6 kg Results 04/12/22 07:28 04/12/22 07:28 Cardiac Enzymes 04/11/22 04/11/22 04/11/22 Range/Units 13:53 13:53 17:09 AST 52 (17-59) U/L Troponin I 0.035 H* 0.034 (0.000-0.034) ng/mL 04/11/22 Range/Units 19:45 AST (17-59) U/L Troponin I 0.033 (0.000-0.034) ng/mL Coagulation 04/11/22 Range/Units 13:53 PT 14.8 H (9.0-12.0) sec APTT 22.1 (22.0-30.0) sec CBC 04/11/22 04/12/22 Range/Units 13:53 07:28 WBC 6.6 5.2 (3.8-10.6) k/uL RBC 5.18 5.13 (4.30-5.90) m/uL Hgb 14.9 14.6 (13.0-17.5) gm/dL Hct 46.8 46.0 (39.0-53.0) % Plt Count 169 168 (150-450) k/uL Comprehensive Metabolic Panel 04/11/22 04/12/22 Range/Units 13:53 07:28 Sodium 141 139 (137-145) mmol/L Potassium 4.6 4.4 (3.5-5.1) mmol/L Chloride 103 101 (98-107) mmol/L Carbon Dioxide 25 27 (22-30) mmol/L BUN 31 H 31 H (9-20) mg/dL Creatinine 1.26 H 1.23 (0.66-1.25) mg/dL Glucose 103 H 102 H (74-99) mg/dL Calcium 9.2 9.0 (8.4-10.2) mg/dL AST 52 (17-59) U/L ALT 76 H (4-49) U/L Alkaline Phosphatase 113 (38-126) U/L Total Protein 6.8 (6.3-8.2) g/dL Albumin 4.4 (3.5-5.0) g/dL Current Medications Generic Name Dose Route Start Last Admin Trade Name Freq PRN Reason Stop Dose Admin Albuterol/Ipratropium 3 ml 04/11/22 21:08 Ipratropium-Albuterol 3 Ml Neb INHALATION RT-Q4H PRN Shortness Of Breath Clopidogrel Bisulfate 75 mg 04/11/22 21:15 04/11/22 21:32 Clopidogrel 75 Mg Tab PO Not Given DAILY LI Formoterol Fumarate 20 mcg 04/12/22 08:00 04/12/22 07:41 Formoterol Fumarate 20 Mcg/2 Ml Nebu INHALATION 20 mcg RT-BID LI Administration Furosemide 40 mg 04/11/22 21:00 04/11/22 19:58 Furosemide 10 Mg/Ml 4 Ml Vial IV 40 mg Q12HR LI Administration Ipratropium [place] 0.5 mg 04/12/22 08:00 04/12/22 07:41 Ipratropium 0.5 Mg/2.5 Ml Nebu INHALATION 0.5 mg RT-QID LI Administration Lisinopril 5 mg 04/11/22 21:15 04/11/22 21:32 Lisinopril 5 Mg Tab PO Not Given DAILY LI Metoprolol Succinate 25 mg 04/12/22 09:00 Metoprolol Succinate (Er) 25 Mg Tab.Er.24h PO DAILY LI Naloxone HCl 0.2 mg 04/11/22 16:15 Naloxone 0.4 Mg/Ml 1 Ml Vial IV Q2M PRN Opioid Reversal Quetiapine Fumarate 200 mg 04/11/22 21:08 Quetiapine 200 Mg Tab PO DAILY PRN Agitation Quetiapine Fumarate 200 mg 04/11/22 21:15 04/11/22 22:53 Quetiapine 200 Mg Tab PO 200 mg HS LI Administration Spironolactone 25 mg 04/11/22 21:15 04/11/22 21:32 Spironolactone 25 Mg Tab PO Not Given DAILY LI Intake and Output 04/11/22 04/12/22 04/12/22 22:59 06:59 14:59 Intake Total 500 Output Total 300 2100 Balance -300 -1600 Intake: Oral 500 Output: Urine 300 2100 Other: Voiding Method Urinal Urinal Weight 98.883 kg 94.6 kg Patient Weight 04/13/22 06:59 Weight 94.6 kg 04/12/22 07:28 04/12/22 07:28
[2022-04-12] MEDS: IPRATROPIUM-ALBUTEROL 3 ML NEB INHALATION SCH ×2 (11:40→20:36)
--- NOTE | 2022-04-12 12:28 | CA ---
Transthoracic Echo Report Name: Caden Agosto Age: 61 Gender: M : 1960 Exam Date: 04/12/2022 10:36 Exam Location: [place] Echo Ht (in): 67 Wt (lb): 208 Ordering Physician: Willow Robles Attending/Referring Phys: [id number], Travis [employer] Specialist Niya Arias, CHARLENE Procedure CPT: Indications: LV function Cardiac Hx: Technical Quality: Good Contrast 1: Total Dose (mL): Contrast 2: Total Dose (mL): MEASUREMENTS (Male / Female) Normal Values 2D ECHO LV Diastolic Diameter PLAX 6.2 cm 4.2 - 5.9 / 3.9 - 5.3 cm LV Systolic Diameter PLAX 5.5 cm IVS Diastolic Thickness 1.1 cm 0.6 - 1.0 / 0.6 - 0.9 cm LVPW Diastolic Thickness 1.1 cm 0.6 - 1.0 / 0.6 - 0.9 cm LV Relative Wall Thickness 0.4 RV Internal Dim ED PLAX 3.3 cm LA Systolic Diameter LX 4.6 cm 3.0 - 4.0 / 2.7 - 3.8 cm LA Volume 84.3 cm??? 18 - 58 / 22 - 52 cm??? M-MODE Aortic Root Diameter MM 3.3 cm MV E Point Septal Separation 2.0 cm AV Cusp Separation MM 2.5 cm DOPPLER AV Peak Velocity 86.3 cm/s AV Peak Gradient 3.0 mmHg MV Area PHT 6.8 cm??? Mitral E Point Velocity 78.1 cm/s Mitral A Point Velocity 30.0 cm/s Mitral E to A Ratio 2.6 MV Deceleration Time 112.0 ms MV E' Velocity 2.5 cm/s Mitral E to MV E' Ratio 31.2 TR Peak Velocity 266.2 cm/s TR Peak Gradient 28.3 mmHg Right Ventricular Systolic Press 43.2 mmHg FINDINGS Left Ventricle Left ventricular ejection fraction is estimated at 20%. Mildly increased left ventricular diastolic diameter. Borderline left ventricular hypertrophy. Right Ventricle Mild right ventricular dilatation. Mild pulmonary hypertension. Right Atrium Normal right atrial size. Left Atrium Mildly increased left atrial diameter. Severely increased left atrial volume. Mildly increased left atrial area. No evidence for an atrial septal defect. Mitral Valve Mitral valve thickened. Mild mitral regurgitation. Aortic Valve Trileaflet aortic valve. Focal thickening of the aortic valve cusps. Tricuspid Valve Mild tricuspid regurgitation. Pulmonic Valve Trace pulmonic regurgitation. Pericardium Small pericardial effusion by left ventricle Aorta Normal size aortic root and proximal ascending aorta. CONCLUSIONS Left ventricular ejection fraction 20% Borderline left ventricular hypertrophy RVSP 43 Moderate to severely dilated left atrium Mild mitral regurgitation Mild tricuspid regurgitation Small circumferential pericardial effusion without tamponade Previewed by: Dr. Ernesto Guadarrama DO (Electronically Signed) Final Date: 12 April 2022 12:27
--- NOTE | 2022-04-12 13:32 | P.CNPUL ---
History of Present Illness Consult date: 04/12/22 Requesting physician: Surendra Connell Reason for consult: dyspnea Chief complaint: Dyspnea on exertion History of present illness: This is a very pleasant 61-year-old male patient with a known history of coronary artery disease with chronic occlusion of the circumflex artery with extensive left to left and [id number] collaterals. He also has significant ischemic cardiomyopathy with an ejection fraction of 20%. He is status post AICD placement in 2019. He does have a history of congestive heart failure, diabetes mellitus, hyperlipidemia, hypertension bipolar disorder, chronic and ongoing tobacco dependence of nearly 50 years. He is on Anoro, albuterol and DuoNeb inhalations per his PCP. He has not been seen by a hoe runner in the past. He presented to the emergency room yesterday after a two-month history of increasing dyspnea on exertion. He is quite short of breath even walking several steps. He is also had abdominal distention and bloating. No fever chills or night sweats. No cough or congestion. Positive paroxysmal nocturnal dyspnea and orthopnea. Chest x-ray shows cardiomegaly with mild central vascular congestion. CAT scan of the abdomen revealed findings consistent with right heart dysfunction and fluid overload state including passive congestion of the liver with a reportable edema, small volume ascites, diffuse anasarca, right pleural effusion, pericardial effusion, cardiomegaly and pulmonary edema. He is maintained on Lasix 20 mg 3 times a day in the outpatient setting along with Aldactone. White count 5.2. Hemoglobin 14.6. Sodium 139. Potassium 4.4. BUN 31. Creatinine 1.23. Glucose 102. ProBNP 5230. Troponins negative 3. Influenza screen negative. Previous COVID-19 screen negative. Echocardiogram reveals severely impaired left ventricular systolic function with ejection fraction of 20%. Small circumferential pericardial effusion without tamponade. He's been initiated on Lasix 40 mg IV every 12 hours. Currently in a -1.9 L balance. He is seen today in consultation on the selective care unit. Currently sitting up in a chair at the bedside. Awake and alert in no acute distress. He is maintaining good O2 saturations in the 90s on room air. Afebrile. Hemodynamically stable. Dyspneic with conversation. Dyspneic with minimal exertion. Review of Systems REVIEW OF SYSTEMS: CONSTITUTIONAL: Denies any recent significant weight loss or weight gain. EYES: Denies change in vision. EARS, NOSE, MOUTH, THROAT: Denies headaches, denies sore throat. CARDIOVASCULAR: Denies chest pain, palpitations or syncopal episodes. RESPIRATORY: Positive for shortness of breath, no cough, congestion or hemoptysis. GASTROINTESTINAL: Positive for abdominal distention. GENITOURINARY: Denies hematuria, denies infections. MUSKULOSKELETAL: Denies pain, denies swelling. INTEGUMENTARY: Denies rash, denies eczema. NEUROLOGICAL: Denies recent memory loss, no recent seizure activity. PSYCHIATRIC: Denies anxiety, denies depression. HEMATOLOGIC/LYMPHATIC: Denies anemia, denies enlarged lymph nodes. 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 Patient was a type II DM taking metformin, patient lost weight and is no longer taking PO meds or diet controlled. Last Myocardial Infarction Date:: 2018 History of Any Multi-Drug Resistant Organisms: None Reported Past Surgical History: AICD, Back Surgery, Heart Catheterization With Stent, Orthopedic Surgery, Tonsillectomy Additional Past Surgical History / Comment(s): colonoscopies; shoulder and ankle surgery. PRIOR HHX STATED PT HAD A PAIN PUMP-PT DENIES EVERY HAVING ONE. Past Anesthesia/Blood Transfusion Reactions: No Reported Reaction Date of Last Stent Placement:: 2018 Type of Cardiac Device: AICD Device Placement Date:: 2018 Past Psychological History: Bipolar Smoking Status: Current every day smoker Past Alcohol Use History: None Reported Past Drug Use History: None Reported - Past Family History Mother Family Medical History: No Reported History Medications and Allergies Home Medications Medication Instructions Recorded Confirmed Type QUEtiapine FUMARATE [SEROquel] 200 mg PO HS 04/27/19 04/11/22 History Albuterol Sulfate [Albuterol 2 puff PO RT-Q6H PRN 04/11/22 04/11/22 History Sulfate Hfa] Clopidogrel [Plavix] 75 mg PO DIRECTED 04/11/22 04/11/22 History Furosemide [Lasix] 20 mg PO TID 04/11/22 04/11/22 History Ipratropium-Albuterol Nebulize 3 ml INHALATION RT-Q4H PRN 04/11/22 04/11/22 History [Duoneb 0.5 mg-3 mg/3 ml Soln] Metoprolol Succinate (ER) [Toprol 25 mg PO DAILY 04/11/22 04/11/22 History Xl] Nitroglycerin Sl Tabs [Nitrostat] 0.4 mg SUBLINGUAL DIRECTED PRN 04/11/22 04/11/22 History Potassium Chloride [Potassium 10 meq PO DIRECTED 04/11/22 04/11/22 History Chloride ER] QUEtiapine FUMARATE [SEROquel] 200 mg PO DAILY PRN 04/11/22 04/11/22 History Spironolactone [Aldactone] 25 mg PO DIRECTED 04/11/22 04/11/22 History Umeclidinium Brm/Vilanterol Tr 1 puff INHALATION RT-DAILY 04/11/22 04/11/22 History [Anoro Ellipta 62.5-25 Mcg INH] lisinopriL [Zestril] 5 mg PO DIRECTED 04/11/22 04/11/22 History Allergies Allergy/AdvReac Type Severity Reaction Status Date / Time No Known Allergies Allergy Verified 04/11/22 15:08 Physical Exam Vitals: Vital Signs Temp Pulse Pulse Resp BP BP Pulse Ox 04/12/22 11:51 96 04/12/22 11:40 97.4 F L 96 96 20 120/87 93 L 04/12/22 08:00 97.7 F 97 20 132/77 93 L 04/12/22 07:57 96 04/12/22 07:50 92 04/12/22 07:42 92 04/12/22 03:53 97.9 F 94 22 118/65 98 04/12/22 01:33 91 20 04/11/22 23:36 91 20 137/88 98 04/11/22 20:00 98 20 04/11/22 19:47 97.6 F 98 20 128/71 98 04/11/22 19:23 96 04/11/22 18:18 97.2 F L 96 16 132/82 96 04/11/22 16:46 98 18 136/89 98 04/11/22 16:28 93 18 133/89 98 Intake and Output 04/11/22 04/12/22 04/12/22 22:59 06:59 14:59 Intake Total 500 118 Output Total 300 2100 1000 Balance -300 -1600 -2 Intake: Oral 500 118 Output: Urine 300 2100 1000 Other: Voiding Method Urinal Urinal Weight 98.883 kg 94.6 kg GENERAL EXAM: Alert, very pleasant 61-year-old male patient, on room air, up in a chair at the bedside, comfortable in no apparent distress. HEAD: Normocephalic. EYES: Normal reaction of pupils, equal size. NOSE: Clear with pink turbinates. THROAT: No erythema or exudates. NECK: No masses, no JVD. CHEST: No chest wall deformity. LUNGS: Equal air entry with crackles in the bilateral bases. CVS: S1 and S2 normal with no audible murmur, regular rhythm. ABDOMEN: Abdominal distention, no hepatosplenomegaly, normal bowel sounds, no guarding or rigidity. SPINE: No scoliosis or deformity SKIN: No rashes CENTRAL NERVOUS SYSTEM: No focal deficits, tone is normal in all 4 extremities. EXTREMITIES: There is trace peripheral edema. No clubbing, no cyanosis. Peripheral pulses are intact. Results - Laboratory Findings CBC and BMP: 04/12/22 07:28 04/12/22 07:28 PT/INR, D-dimer PT 14.8 sec (9.0-12.0) H 04/11/22 13:53 INR 1.4 (<1.2) H 04/11/22 13:53 Abnormal lab findings: Abnormal Labs 04/11/22 04/11/22 04/11/22 13:53 13:53 13:53 PT 14.8 H INR 1.4 H BUN 31 H Creatinine 1.26 H Glucose 103 H Total Bilirubin 1.9 H ALT 76 H Troponin I 0.035 H* 04/12/22 07:28 PT INR BUN 31 H Creatinine Glucose 102 H Total Bilirubin ALT Troponin I - Diagnostic Findings Chest x-ray: image reviewed Assessment and Plan Assessment: Acute exacerbation of chronic systolic congestive heart failure patient with a known ejection fraction of 20%. Ischemic cardiomyopathy, status post AICD placement in 2019 Coronary artery disease with chronic occlusion of the circumflex and RCA with extensive left to left and [id number] collaterals Chronic and ongoing tobacco dependence of nearly 50 years Chronic obstructive pulmonary disease maintained on bronchodilators in the outpatient setting Hypertension Hyperlipidemia Osteoarthritis Bipolar disorder Plan: The patient was seen and evaluated Chest x-ray, echocardiogram, labs and medications reviewed Continue with IV diuretics Monitor I&O Educated regarding the importance of complete smoking cessation NicoDerm patch is offered Continue Symbicort, DuoNeb inhalations He would benefit from outpatient pulmonary function testing We will continue to follow and make further recommendations based on his clinical status I have personally seen and examined the patient, performed the documentation and the assessment and plan as written. Number of minutes spent on the visit: 20.
[2022-04-12] MEDS: SYMBICORT 160-4.5 MCG INHALER INHALATION SCH (20:35)
[2022-04-12] MEDS: QUEtiapine 200 MG TAB PO SCH (22:00)
--- NOTE | 2022-04-12 22:28 | P.HPIM ---
History of Present Illness H&P Date: 04/12/22 Chief Complaint: shortness of breath Caden Agosto is a 61 yo M with a past medical history significant for CAD, ischemic cardiomyopathy with AICD implantation, systolic CHF, HTN, HLD and nicotine dependence who presented to the hospital with increasing shortness of breath. He states that over the past few weeks and especially the last few days has been feeling winded with rest and exertion. He denies chest pain, diaphoresis. He complains of orthopnea. He does continue to smoke approx 4 cigarettes per day. On presentation vitals stable, WBC 6.6, Hgb 14.9, Cr 1.26, BNP 5240, trop 0.035. CT abd/pelvis with small ascites. Review of Systems All systems: negative Constitutional: Reports malaise, Reports weakness, Denies chills, Denies fever Eyes: denies blurred vision, denies pain Ears, nose, mouth and throat: Denies headache, Denies sore throat Cardiovascular: Reports dyspnea on exertion, Reports edema, Reports shortness of breath, Denies chest pain Respiratory: Denies cough Gastrointestinal: Denies abdominal pain, Denies diarrhea, Denies nausea, Denies vomiting Musculoskeletal: Denies myalgias Integumentary: Denies pruritus, Denies rash Neurological: Denies numbness, Denies weakness Psychiatric: Denies anxiety, Denies depression Endocrine: Denies fatigue, Denies weight change Past Medical History Past Medical History: Coronary Artery Disease (CAD), Heart Failure, Diabetes Mellitus, Hyperlipidemia, Hypertension, Myocardial Infarction ([place]), Osteoarthritis (OA) Additional Past Medical History / Comment(s): HX POLYPS, HX BACK PAIN, 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 Patient was a type II DM taking metformin, patient lost weight and is no longer taking PO meds or diet controlled. Last Myocardial Infarction Date:: 2019 History of Any Multi-Drug Resistant Organisms: None Reported Past Surgical History: AICD, Back Surgery, Heart Catheterization With Stent, Orthopedic Surgery, Tonsillectomy Additional Past Surgical History / Comment(s): colonoscopies; shoulder and ankle surgery. PRIOR HHX STATED PT HAD A PAIN PUMP-PT DENIES EVERY HAVING ONE. Past Anesthesia/Blood Transfusion Reactions: No Reported Reaction Date of Last Stent Placement:: 2018 Type of Cardiac Device: AICD Device Placement Date:: 2019 Past Psychological History: Bipolar Smoking Status: Current every day smoker Past Alcohol Use History: None Reported Past Drug Use History: None Reported - Past Family History Mother Family Medical History: No Reported History Medications and Allergies Home Medications Medication Instructions Recorded Confirmed Type QUEtiapine FUMARATE [SEROquel] 200 mg PO HS 04/27/19 04/11/22 History Albuterol Sulfate [Albuterol 2 puff PO RT-Q6H PRN 04/11/22 04/11/22 History Sulfate Hfa] Clopidogrel [Plavix] 75 mg PO DIRECTED 04/11/22 04/11/22 History Furosemide [Lasix] 20 mg PO TID 04/11/22 04/11/22 History Ipratropium-Albuterol Nebulize 3 ml INHALATION RT-Q4H PRN 04/11/22 04/11/22 History [Duoneb 0.5 mg-3 mg/3 ml Soln] Metoprolol Succinate (ER) [Toprol 25 mg PO DAILY 04/11/22 04/11/22 History Xl] Nitroglycerin Sl Tabs [Nitrostat] 0.4 mg SUBLINGUAL DIRECTED PRN 04/11/22 04/11/22 History Potassium Chloride [Potassium 10 meq PO DIRECTED 04/11/22 04/11/22 History Chloride ER] QUEtiapine FUMARATE [SEROquel] 200 mg PO DAILY PRN 04/11/22 04/11/22 History Spironolactone [Aldactone] 25 mg PO DIRECTED 04/11/22 04/11/22 History Umeclidinium Brm/Vilanterol Tr 1 puff INHALATION RT-DAILY 04/11/22 04/11/22 History [Anoro Ellipta 62.5-25 Mcg INH] lisinopriL [Zestril] 5 mg PO DIRECTED 04/11/22 04/11/22 History Allergies Allergy/AdvReac Type Severity Reaction Status Date / Time No Known Allergies Allergy Verified 04/11/22 15:08 Physical Exam Vitals: Vital Signs Temp Pulse Pulse Resp BP Pulse Ox 04/12/22 20:51 84 04/12/22 20:36 80 04/12/22 16:23 97.7 F 91 20 123/81 96 04/12/22 11:51 96 04/12/22 11:40 97.4 F L 96 96 20 120/87 93 L 04/12/22 08:00 97.7 F 97 20 132/77 93 L 04/12/22 07:57 96 04/12/22 07:50 92 04/12/22 07:42 92 04/12/22 03:53 97.9 F 94 22 118/65 98 04/12/22 01:33 91 20 04/11/22 23:36 91 20 137/88 98 Intake and Output 04/12/22 04/12/22 04/12/22 06:59 14:59 22:59 Intake Total 500 238 240 Output Total 2100 1550 300 Balance -1599 -2 60 Intake: Oral 500 238 240 Output: Urine 2100 1550 300 Other: Voiding Method Urinal Weight 94.6 kg Gen: well developed, well nourished, obese, NAD HEENT: normocephalic, atraumatic, mucus membranes moist Neck: supple, no JVD or thyromegaly CV: RRR, no murmur. Trace edema Lungs: Normal effort, no wheezing or rales Abd: soft, nontender, mildly distended Neuro: alert and oriented x3, no focal deficit Skin: warm and dry Results CBC & Chem 7: 04/12/22 07:28 04/12/22 07:28 Labs: Abnormal Lab Results - Last 24 Hours (Table) 04/12/22 Range/Units 07:28 BUN 31 H (9-20) mg/dL Glucose 102 H (74-99) mg/dL Thrombosis Risk Factor Assmnt - Choose All That Apply Any of the Below Risk Factors Present?: Yes Each Risk Factor Represents 2 Points: Age 61-74 years Thrombosis Risk Factor Assessment Total Risk Factor Score: 2 Thrombosis Risk Factor Assessment Level: Low Risk Assessment and Plan Plan: Acute exacerbation of systolic CHF. Cardiology consult. Start IV lasix. Continue aldactone. Echo. I/Os Cor pulmonale. COPD. Pulmoanry consult. Continue symbicort and duonebs CAD. Continue metoprolol, lisinopril
[2022-04-13] MEDS: IPRATROPIUM-ALBUTEROL 3 ML NEB INHALATION SCH ×3 (08:02→19:32)
[2022-04-13] MEDS: SYMBICORT 160-4.5 MCG INHALER INHALATION SCH ×2 (08:02→19:32)
[2022-04-13] MEDS: FUROSEMIDE 10 MG/ML 4 ML VIAL IV SCH ×2 (09:03→21:59)
[2022-04-13] MEDS: METOPROLOL SUCCINATE (ER) 25 MG TAB.ER.24H PO SCH (09:04)
[2022-04-13] MEDS: SPIRONOLACTONE 25 MG TAB PO SCH (09:04)
[2022-04-13] MEDS: lisinopriL 5 MG TAB PO SCH (09:04)
[2022-04-13] MEDS: CLOPIDOGREL 75 MG TAB PO SCH (09:04)
[2022-04-13 11:16] LABS: Calcium 9.1 mg/dL (8.4-10.2); Potassium 4.5 mmol/L (3.5-5.1)
--- NOTE | 2022-04-13 12:19 | P.PN ---
Subjective Progress Note Date: 04/13/22 This is a very pleasant 61-year-old male patient with a known history of coronary artery disease with chronic occlusion of the circumflex artery with extensive left to left and [id number]-[id number] collaterals. He also has significant ischemic cardiomyopathy with an ejection fraction of 20%. He is status post AICD placement in 2019. He does have a history of congestive heart failure, diabetes mellitus, hyperlipidemia, hypertension bipolar disorder, chronic and ongoing tobacco dependence of nearly 50 years. He is on Anoro, albuterol and DuoNeb inhalations per his PCP. He has not been seen by a dental practitioner in the past. He presented to the emergency room yesterday after a two-month history of increasing dyspnea on exertion. He is quite short of breath even walking several steps. He is also had abdominal distention and bloating. No fever chills or night sweats. No cough or congestion. Positive paroxysmal nocturnal dyspnea and orthopnea. Chest x-ray shows cardiomegaly with mild central vasc ular congestion. CAT scan of the abdomen revealed findings consistent with right heart dysfunction and fluid overload state including passive congestion of the liver with a reportable edema, small volume ascites, diffuse anasarca, right pleural effusion, pericardial effusion, cardiomegaly and pulmonary edema. He is maintained on Lasix 20 mg 3 times a day in the outpatient setting along with Aldactone. White count 5.2. Hemoglobin 14.6. Sodium 139. Potassium 4.4. BUN 31. Creatinine 1.23. Glucose 102. ProBNP 5230. Troponins negative 3. Influenza screen negative. Previous COVID-19 screen negative. Echocardiogram reveals severely impaired left ventricular systolic function with ejection fraction of 20%. Small circumferential pericardial effusion without tamponade. He's been initiated on Lasix 40 mg IV every 12 hours. Currently in a -1.9 L balance. He is seen today in consultation on the selective care unit. Currently sitting up in a chair at the bedside. Awake and alert in no acute distress. He is maintaining good O2 saturations in the 90s on room air. Afebrile. Hemodynamically stable. Dyspneic with conversation. Dyspneic with minimal exertion. The patient is seen today 04/13/2022 in follow-up on the selective care unit. He is up ambulating in his room. Awake and alert in no acute distress. He is maintaining good O2 saturations in the 90s on room air. He didn't diurese at least 3 L of fluid post diuretics. Sodium 139. Potassium 4.5. BUN 30. Creat inine 1.10. He is maintained on Symbicort, DuoNeb inhalations, Lasix and Aldactone. He is feeling quite a bit better. He is anxious to go home. Objective - Vital Signs Vital signs: Vital Signs Temp 96.7 F L 04/13/22 08:00 Pulse 84 04/13/22 12:06 Resp 20 04/13/22 08:00 BP 121/86 04/13/22 08:00 Pulse Ox 90 L 04/13/22 08:00 FiO2 Intake & Output 04/12/22 04/13/22 04/13/22 18:59 06:59 18:59 Intake Total 478 Output Total 1850 1700 1900 Balance -1372 -1700 -1900 Weight 94.6 kg 92.8 kg Intake: Oral 478 Output: Urine 1850 1700 1900 Other: Voiding Method Urinal - Exam GENERAL EXAM: Alert, active, very pleasant 61-year-old male, on room air, comfortable in no apparent distress. HEAD: Normocephalic. EYES: Normal reaction of pupils, equal size. NOSE: Clear with pink turbinates. THROAT: No erythema or exudates. NECK: No masses, no JVD. CHEST: No chest wall deformity. LUNGS: Equal air entry with no crackles, wheeze, rhonchi or dullness. CVS: S1 and S2 normal with no audible murmur, regular rhythm. ABDOMEN: No hepatosplenomegaly, normal bowel sounds, no guarding or rigidity. SPINE: No scoliosis or deformity SKIN: No rashes CENTRAL NERVOUS SYSTEM: No focal deficits, tone is normal in all 4 extremities. EXTREMITIES: There is no peripheral edema. No clubbing, no cyanosis. Peripheral pulses are intact. - Labs CBC & Chem 7: 04/12/22 07:28 04/13/22 08:35 Labs: Abnormal Lab Results - Last 24 Hours (Table) 04/13/22 Range/Units 08:35 BUN 30 H (9-20) mg/dL Glucose 152 H (74-99) mg/dL Assessment and Plan Assessment: Acute exacerbation of chronic systolic congestive heart failure patient with a known ejection fraction of 20%. Ischemic cardiomyopathy, status post AICD placement in 2019 Coronary artery disease with chronic occlusion of the circumflex and RCA with extensive left to left and [id number] collaterals Chronic and ongoing tobacco dependence of nearly 50 years Chronic obstructive pulmonary disease maintained on bronchodilators in the outpatient setting Hypertension Hyperlipidemia Osteoarthritis Bipolar disorder Plan: The patient was seen and evaluated Labs and medications reviewed Cleared for discharge from the pulmonary standpoint Continue his home pulmonary medications Follow-up in the office in 1 week I have personally seen and examined the patient, performed the documentation and the assessment and plan as written. Number of minutes spent on the visit: 10.
--- NOTE | 2022-04-13 13:09 | P.PN ---
Subjective Progress Note Date: 04/13/22 Patient is resting comfortably in no signs of acute distress. He underwent a GAYATRI cardioversion yesterday which was negative for vegetation. His most recent blood cultures have come back negative. He continues on Eliquis for anticoagulation. Patient is cleared for discharge from a cardiac standpoint wh en ID clears him. Objective - Vital Signs Vital signs: Vital Signs Temp 97.9 F 04/13/22 12:50 Pulse 90 04/13/22 12:50 Resp 20 04/13/22 12:50 BP 120/56 04/13/22 12:50 Pulse Ox 96 04/13/22 12:50 FiO2 Intake & Output 04/12/22 04/13/22 04/13/22 18:59 06:59 18:59 Intake Total 478 Output Total 1850 1700 1900 Balance -1372 -1700 -1900 Weight 94.6 kg 92.8 kg Intake: Oral 478 Output: Urine 1850 1700 1900 Other: Voiding Method Urinal - Exam PHYSICAL EXAM: VITAL SIGNS: Reviewed. GENERAL: Well-developed in no acute distress. HEENT: Head is normocephalic. Pupils are equal, round. Sclerae anicteric. Mucous membranes of the mouth are moist. NECK: Supple. No JVD or thyromegaly RESPIRATORY: Respirations even and unlabored. Lungs diminished to auscultation bilaterally. CARDIO: Regular rate and rhythm. S1 and S2 heard. No murmur or gallops. EXTREMITIES: Normal range of motion. No clubbing or cyanosis. Peripheral puls es intact. Negative for bilateral lower extremity edema NEURO: Orientated to person, time, mood is appropriate - Labs CBC & Chem 7: 04/12/22 07:28 04/13/22 08:35 Labs: Abnormal Lab Results - Last 24 Hours (Table) 04/13/22 Range/Units 08:35 BUN 30 H (9-20) mg/dL Glucose 152 H (74-99) mg/dL Assessment and Plan Assessment: Shortness of breath Acute on chronic heart failure with reduced EF Acute COPD exacerbation Coronary artery disease Ischemic cardiomyopathy with history of AICD implantation Hypertension Hyperlipidemia Nicotine dependence Plan: Continue with all current cardiac medications Continue with telemetry monitoring Continue with accurate I's and O's, daily weights, and monitoring kidney function Once cleared for discharge by ID, patient is cleared for discharge by cardiac standpoint Further recommendations based on clinical course The above impression and plan of care have been discussed and directed by the signing physician. Brii Coleman, nurse practitioner, acting as scribe for signing physician.
--- NOTE | 2022-04-13 13:26 | P.PN ---
Subjective Progress Note Date: 04/13/22 Patient is seen doing well today resting comfortably in the bedside chair. He reports his increased shortness of breath is greatly improved. He needs ready to go home. His echocardiogram shows no change from prior, has a severely decreased LV function with an EF of 20%, mild mitral regurgitation and mild tricuspid regurgitation and a small pericardial effusion. Will keep patient for one more day and continue with IV Lasix 40 mg every 12. Will transition him to by mouth Lasix tomorrow. Anticipated discharge in the next 24 hours Objective - Vital Signs Vital signs: Vital Signs Temp 97.9 F 04/13/22 12:50 Pulse 90 04/13/22 12:50 Resp 20 04/13/22 12:50 BP 120/56 04/13/22 12:50 Pulse Ox 96 04/13/22 12:50 FiO2 Intake & Output 04/12/22 04/13/22 04/13/22 18:59 06:59 18:59 Intake Total 478 Output Total 1850 1700 1900 Balance -1372 -1700 -1900 Weight 94.6 kg 92.8 kg Intake: Oral 478 Output: Urine 1850 1700 1900 Other: Voiding Method Urinal - Exam PHYSICAL EXAM: VITAL SIGNS: Reviewed. GENERAL: Well-developed in no acute distress. HEENT: Head is normocephalic. Pupils are equal, round. Sclerae anicteric. Mucous membranes of the mouth are moist. NECK: Supple. No JVD or thyromegaly RESPIRATORY: Respirations even and unlabored. Lungs diminished to auscultation bilaterally. CARDIO: Regular rate and rhythm. S1 and S2 heard. No murmur or gallops. EXTREMITIES: Normal range of motion. No clubbing or cyanosis. Peripheral pulses intact. Negative for bilateral lower extremity edema NEURO: Orientated to person, time, mood is appropriate - Labs CBC & Chem 7: 04/12/22 07:28 04/13/22 08:35 Labs: Abnormal Lab Results - Last 24 Hours (Table) 04/13/22 Range/Units 08:35 BUN 30 H (9-20) mg/dL Glucose 152 H (74-99) mg/dL Assessment and Plan Assessment: Shortness of breath Acute on chronic heart failure with reduced EF Acute COPD exacerbation Coronary artery disease Ischemic cardiomyopathy with history of AICD implantation Hypertension Hyperlipidemia Nicotine dependence Plan: Continue with current dose of IV Lasix 2-D echocardiogram obtained and reviewed Continue with all other current cardiac medications Continue with strict is and O's and daily weights Anticipated discharge tomorrow Further recommendations based on clinical course The above impression and plan of care have been discussed and directed by the signing physician. Brii Coleman, nurse practitioner, acting as scribe for signing physician.
[2022-04-13] MEDS: QUEtiapine 200 MG TAB PO SCH (21:59)
[2022-04-14 04:25] VITALS: RESP 18
[2022-04-14] MEDS: IPRATROPIUM-ALBUTEROL 3 ML NEB INHALATION SCH ×2 (07:41→11:30)
[2022-04-14] MEDS: SYMBICORT 160-4.5 MCG INHALER INHALATION SCH (07:41)
[2022-04-14] MEDS: SPIRONOLACTONE 25 MG TAB PO SCH (08:38)
[2022-04-14] MEDS: CLOPIDOGREL 75 MG TAB PO SCH (08:38)
[2022-04-14] MEDS: FUROSEMIDE 10 MG/ML 4 ML VIAL IV SCH (08:38)
[2022-04-14] MEDS: METOPROLOL SUCCINATE (ER) 25 MG TAB.ER.24H PO SCH (08:38)
[2022-04-14] MEDS: lisinopriL 5 MG TAB PO SCH (08:38)
[2022-04-14 09:17] LABS: Calcium 9.1 mg/dL (8.4-10.2)
--- NOTE | 2022-04-14 11:59 | P.PN ---
Subjective Progress Note Date: 04/14/22 Principal diagnosis: Acute systolic congestive heart failure secondary to ischemic cardiomyopathy This is a very pleasant 61-year-old male patient with a known history of coronary artery disease with chronic occlusion of the circumflex artery with extensive left to left and [id number] collaterals. He also has significant ischemic cardiomyopathy with an ejection fraction of 20%. He is status post AICD placement in 2019. He does have a history of congestive heart failure, diabetes mellitus, hyperlipidemia, hypertension bipolar disorder, chronic and ongoing tobacco dependence of nearly 50 years. He is on Anoro, albuterol and DuoNeb inhalations per his PCP. He has not been seen by a route driver in the past. He presented to the emergency room yesterday after a two-month history of increasing dyspnea on exertion. He is quite short of breath even walking several steps. He is also had abdominal distention and bloating. No fever chills or night sweats. No cough or congestion. Positive paroxysmal nocturnal dyspnea and orthopnea. Chest x-ray shows cardiomegaly with mild central vascular congestion. CAT scan of the abdomen revealed findings consistent with right heart dysfunction and fluid overload state including passive congestion of the liver with a reportable edema, small volume ascites, diffuse anasarca, right pleural effusion, pericardial effusion, cardiomegaly and pulmonary edema. He is maintained on Lasix 20 mg 3 times a day in the outpatient setting along with Aldactone. White count 5.2. Hemoglobin 14.6. Sodium 139. Potassium 4.4. BUN 31. Creatinine 1.23. Glucose 102. ProBNP 5230. Troponins negative 3. Influenza screen negative. Previous COVID-19 screen negative. Echocardiogram reveals severely impaired left ventricular systolic function with ejection fraction of 20%. Small circumferential pericardial effusion without tamponade. He's been initiated on Lasix 40 mg IV every 12 hours. Currently in a -1.9 L balance. He is seen today in consultation on the selective care unit. Currently sitting up in a chair at the bedside. Awake and alert in no acute distress. He is maintaining good O2 saturations in the 90s on room air. Afebrile. Hemodynamically stable. Dyspneic with conversation. Dyspneic with minimal exertion. Reevaluated today on 04/14/22, patient is feeling much better, he would like to go home. Apparently he is yet to be cleared by cardiology nonetheless the patient is doing great, he feels his back to his baseline. Responded well to diuretics. Basic metabolic profile and renal profile is noted to be normal today. Objective - Vital Signs Vital signs: Vital Signs Temp 97.6 F 04/14/22 08:00 Pulse 87 04/14/22 11:40 Resp 18 04/14/22 08:00 BP 112/67 04/14/22 08:00 Pulse Ox 95 04/14/22 08:00 FiO2 Intake & Output 04/13/22 04/14/22 04/14/22 18:59 06:59 18:59 Intake Total 240 240 Output Total 2200 3450 500 Balance -1960 -0930 -260 Weight 90 kg Intake: Oral 240 240 Output: Urine 2200 3450 500 Other: Voiding Method Urinal - Exam Physical Exam: Revealed a 61-year-old white male in no distress Head: Atraumatic normocephalic HEENT:[Neck is supple.] [No neck masses.] [No thyromegaly.] [No JVD.] Chest: [Clear throughout, no crackles, no rhonchi, no wheezes.] Cardiac Exam: [Normal S1 and S2, no S3 gallop, no murmur.] Abdomen: [Soft, nontender, no megaly, no rebound, no guarding, normal bowel sounds.] Extremities: [No clubbing, no edema, no cyanosis.] Neurological Exam: [No focal neurologic deficit.] Alert oriented 3 Psychiatric: Normal mood affect and normal mental status examination. Skin: No rashes - Labs CBC & Chem 7: 04/12/22 07:28 04/14/22 08:47 Labs: Abnormal Lab Results - Last 24 Hours (Table) 04/14/22 Range/Units 08:47 BUN 28 H (9-20) mg/dL Glucose 159 H (74-99) mg/dL Assessment and Plan Assessment: Acute exacerbation of chronic systolic congestive heart failure patient with a known ejection fraction of 20%. Ischemic cardiomyopathy, status post AICD placement in 2019 Coronary artery disease with chronic occlusion of the circumflex and RCA with extensive left to left and [id number] collaterals Chronic and ongoing tobacco dependence of nearly 50 years Chronic obstructive pulmonary disease maintained on bronchodilators in the outpatient setting Hypertension Hyperlipidemia Osteoarthritis Bipolar disorder Recommendation: Continue present medications Continue diuretics We will clear the patient for discharge if cleared by cardiology. Follow-up on outpatient basis with me Time with Patient: Less than 30
[2022-04-14 12:05] VITALS: BP 123/63; PULSE 94; TEMP 97.4
--- NOTE | 2022-04-14 12:50 | P.PN ---
Subjective Progress Note Date: 04/14/22 Patient is seen doing well today ready to go home. He is sitting in the bedside chair with no signs of acute distress. He denies shortness of breath or chest pain. He does report a mild dry hacking cough. Will discontinue lisinopril and start losartan 25 mg daily. Will transition him to Lasix by mouth 40 mg daily. Patient may be discharged from a cardiac standpoint and follow up in the office. Objective - Vital Signs Vital signs: Vital Signs Temp 97.4 F L 04/14/22 12:03 Pulse 94 04/14/22 12:03 Resp 18 04/14/22 12:03 BP 123/63 04/14/22 12:03 Pulse Ox 95 04/14/22 12:03 FiO2 Intake & Output 04/13/22 04/14/22 04/14/22 18:59 06:59 18:59 Intake Total 240 240 Output Total 2200 3450 500 Balance -1960 -2570 -260 Weight 90 kg Intake: Oral 240 240 Output: Urine 2200 3450 500 Other: Voiding Method Urinal - Exam PHYSICAL EXAM: VITAL SIGNS: Reviewed. GENERAL: Well-developed in no acute distress. HEENT: Head is normocephalic. Pupils are equal, round. Sclerae anicteric. Mucous membranes of the mouth are moist. NECK: Supple. No JVD or thyromegaly RESPIRATORY: Respirations even and unlabored. Lungs diminished to auscultation bilaterally. CARDIO: Regular rate and rhythm. S1 and S2 heard. No murmur or gallops. EXTREMITIES: Normal range of motion. No clubbing or cyanosis. Peripheral pulses intact. Negative for bilateral lower extremity edema NEURO: Orientated to person, time, mood is appropriate - Labs CBC & Chem 7: 04/12/22 07:28 04/14/22 08:47 Labs: Abnormal Lab Results - Last 24 Hours (Table) 04/14/22 Range/Units 08:47 BUN 28 H (9-20) mg/dL Glucose 159 H (74-99) mg/dL Assessment and Plan Assessment: Shortness of breath Acute on chronic heart failure with reduced EF Acute COPD exacerbation Coronary artery disease Ischemic cardiomyopathy with history of AICD implantation Hypertension Hyperlipidemia Nicotine dependence Plan: Discontinue lisinopril and start losartan 25 mg Discontinue IV Lasix and start Lasix 40 mg by mouth Patient cleared for discharge will follow-up outpatient The above impression and plan of care have been discussed and directed by the signing physician. Brii Coleman, nurse practitioner, acting as scribe for signing physician.
--- NOTE | 2022-04-14 23:28 | PN ---
PROGRESS NOTE DATE OF SERVICE: 04/13/2022 SUBJECTIVE: This 61-year-old , who was admitted with shortness of breath and CHF acute exacerbation. The patient also had COPD exacerbation. The patient is being closely monitored. No chest pain. No palpitations. No fever. OBJECTIVE: VITAL SIGNS: Pulse 93, blood pressure 125/70, respirations 20. HEENT: Conjunctivae normal. NECK: No JVD. CARDIOVASCULAR: S1, S2. RESPIRATION: Few scattered rhonchi and crackles. ABDOMEN: Soft. NERVOUS SYSTEM: Nonfocal. LABORATORY DATA: Reviewed. ASSESSMENT: 1. Shortness of breath, possibly chronic obstructive pulmonary disease and congestive heart failure acute exacerbation. 2. Hypertension. 3. Hyperlipidemia. 4. Multiple complex medical issues. RECOMMENDATIONS: I recommend to continue current management and symptomatic treatment. Continue with diuretics. Continue with bronchodilators. Closely follow with Cardiology. Further recommendations to follow. ANDREAS / JUANN: [id number] / MTDD
--- NOTE | 2022-04-15 05:34 | DS ---
DISCHARGE SUMMARY FINAL DIAGNOSES: 1. Congestive heart failure exacerbation with acute on chronic systolic dysfunction, ejection fraction 20%. 2. Ischemic cardiomyopathy. 3. COPD. 4. Hypertension. 5. Hyperlipidemia. 6. Multiple complex medical issues. DISCHARGE DISPOSITION: The patient will be discharged in stable condition with guarded prognosis. HISTORY OF PRESENT ILLNESS AND HOSPITAL COURSE: This 61-year-old gentleman with a past medical history of multiple medical problems was admitted with shortness of breath. The patient was treated in conjunction with Dr. Plaza and Cardiology, both cleared the patient. Patient is keen on going home. The patient will be discharged in stable and guarded prognosis. Follow up with Dr. Connell. Continue with Lasix 40 p.o. b.i.d. and continue with the rest of medications. See medication reconcile sheet for further information. Follow up with Dr. Meka Pulido as well as Dr. Plaza. ANDREAS / JUANN: [id number] /
[2022-04-15] MEDS ORDERED: LOSARTAN 25 MG TAB PO SCH (09:00)
[2022-04-15] MEDS ORDERED: FUROSEMIDE 40 MG TAB PO SCH (09:00)
== END 2022-04-14 13:32 | disposition home or self-care (01) | DRG 280 ==
LOC: EC 12:57 → 3SCARD 16:15
PROVIDERS: ADMIT Family Medicine; ATTEND Family Medicine
DX: I21.4 Non-ST elevation (NSTEMI) myocardial infarction (principal); I50.23 Acute on chronic systolic (congestive) heart failure; R18.8 Other ascites; I31.39 Other pericardial effusion (noninflammatory); J44.1 Chronic obstructive pulmonary disease with (acute) exacerbation; I25.10 Atherosclerotic heart disease of native coronary artery without angina pectoris; Z20.822 Contact with and (suspected) exposure to COVID-19; I11.0 Hypertensive heart disease with heart failure; I27.20 Pulmonary hypertension, unspecified; K76.1 Chronic passive congestion of liver; I27.81 Cor pulmonale (chronic); E11.9 Type 2 diabetes mellitus without complications; I08.3 Combined rheumatic disorders of mitral, aortic and tricuspid valves; F31.9 Bipolar disorder, unspecified; I25.5 Ischemic cardiomyopathy; E78.5 Hyperlipidemia, unspecified; M19.90 Unspecified osteoarthritis, unspecified site; F17.210 Nicotine dependence, cigarettes, uncomplicated; I25.2 Old myocardial infarction; Z95.810 Presence of automatic (implantable) cardiac defibrillator; Z95.5 Presence of coronary angioplasty implant and graft; Z79.899 Other long term (current) drug therapy; Z86.010 Personal history of colon polyps; Z86.16 Personal history of COVID-19; Z79.84 Long term (current) use of oral hypoglycemic drugs
CPT/HCPCS: 36415; 71046; 74177; 80048; 80053; 83605; 83880; 84484; 85025; 85610; 85730; 87502; 93005; 93306; 94640; 99285

== ENCOUNTER → 2022-09-16 | Outpatient (CLI) | payer MEDICARE ==
--- NOTE | 2022-09-16 10:32 | CTL ---
EXAMINATION TYPE: CT Low Dose Lung DATE OF EXAM ORDERED: 09/16/2022 HISTORY: . Lung cancer screening CT DLP: 135.[address] CTDI: 3.7 mGy Automated exposure control for dose reduction was used. SCREENING VISIT: COMPARISON: 05/23/2021 TECHNIQUE: Low dose computed tomography scan was performed through the chest at 1 mm thick sections a nd reconstructed images in multiple planes at 1 mm and [address] DIAGNOSTIC QUALITY: Satisfactory FINDINGS: LUNGS: The lungs are clear and free of infiltrate. No atelectasis. There is a 2mm pulmonary nodule le t upper nodule image 83. No pleural effusion. No CT evidence of interstitial lung disease. Mild emphy sematous changes. 2 mm nodule image 88 MEDIASTINUM/GUNJAN: Thoracic aorta is of normal caliber with limited evaluation given lack of contrast. The heart is enlarged. Coronary artery calcifications noted. Cardiac device and leads noted. No lymp h nodes greater than 1cm. UPPER ABDOMEN: Small hiatal hernia. OTHER: Hypertrophic and degenerative change of the spine. Intrathecal metallic lead noted. IMPRESSION: 1. There is a 2 mm nodule left upper lobe subpleural image 83 and right upper lobe image 80. Has a be nign appearance. 2. Cardiomegaly with dense coronary artery calcification. CT LUNG RAD AND CT CHEST RECOMMENDATION: Lung-Rad 2 Benign Appearance or Behavior: Continue annual sc reening with LDCT in 12 months.
== END | disposition home or self-care (01) ==
LOC: RADCTMAIN 08:06
PROVIDERS: ATTEND Family Medicine
DX: Z12.2 Encounter for screening for malignant neoplasm of respiratory organs (principal); I25.10 Atherosclerotic heart disease of native coronary artery without angina pectoris; R91.1 Solitary pulmonary nodule; I51.7 Cardiomegaly; F17.210 Nicotine dependence, cigarettes, uncomplicated
CPT/HCPCS: 71271

== ENCOUNTER → 2024-06-18 | Outpatient (CLI) | payer MEDICARE ==
[2024-06-18 15:22] LABS: HCT 51.2 % (39.6-50.0); HGB 17.6 g/dL (13.0-17.0); MCH 29.8 pg (27.0-32.0); MCHC 34.4 g/dL (32.0-37.0); MCV 86.6 FL (80.0-97.0); Mean Platelet Volume 12.3 FL (9.5-12.2); NRBC Per 100 WBC 0 X 10*3/uL (0.00-0.01); Platelet Count 166 X 10*3/uL (140-440); RBC 5.91 X 10*6/uL (4.40-5.60); RDW 12.4 % (11.5-14.5); WBC 6.19 X 10*3/uL (4.50-10.00)
[2024-06-18 16:37] LABS: ALT 38 U/L (10-49); AST 21 U/L (14-35); Albumin 4.4 g/dL (3.8-4.9); Albumin/Globulin Ratio 1.63 Ratio (1.60-3.17); Alkaline Phosphatase 59 U/L (41-126); BUN/Creat Ratio 24.92 Ratio (12.00-20.00); Blood Urea Nitrogen 29.9 mg/dL (9.0-27.0); Calcium 9.9 mg/dL (8.7-10.3); Carbon Dioxide 23.1 mmol/L (21.6-31.8); Chloride 98 mmol/L (96-109); Chol/HDL Ratio 8.68 Ratio; Globulin 2.7 g/dL (1.6-3.3); Glucose 128 mg/dL (70-110); Potassium 4.3 mmol/L (3.5-5.5); Sodium 135 mmol/L (135-145); Total Bilirubin 0.5 mg/dL (0.3-1.2); Total Protein 7.1 g/dL (6.2-8.2)
[2024-06-18 17:08] LABS: NT-Pro-B-Type Natriuretic Pept 126 pg/mL (0-125)
== END | disposition home or self-care (01) ==
LOC: LABWHC1 08:26
PROVIDERS: ATTEND Physician Assistant
DX: I50.42 Chronic combined systolic (congestive) and diastolic (congestive) heart failure (principal); E78.2 Mixed hyperlipidemia
CPT/HCPCS: 36415; 80053; 80061; 83721; 83880; 84443; 85027

== ENCOUNTER → 2024-12-23 | Outpatient (CLI) | payer MEDICARE ==
--- NOTE | 2024-12-23 17:21 | CTL ---
EXAMINATION TYPE: CT Low Dose Lung DATE OF EXAM: 12/23/2024 4:36 PM COMPARISON: 09/16/2022 CLINICAL INDICATION: Male, 64 years old with history of Z12.2, F17.210 NICOTINE DEPENDENCE, CIGARETTE S, UN, History of smoking, History of tobacco use. TECHNIQUE: Low Dose CT Lung Screening, Low dose computed tomography scan was performed through the est at 1 millimeter thick sections and reconstructed images in the coronal plane at 1 mm thick sectio ns. IV CONTRAST USED: None. SCREENING VISIT: Second CT DLP: 133.2 mGycm, Automated exposure control for dose reduction was used. CT CTDI: 3.7 mGy FINDINGS: CT DIAGNOSTIC QUALITY: Satisfactory LUNG NODULES: 3 mm pulmonary nodule right upper lobe at its periphery image 20 is unchanged. Stable 2 mm nodule left upper lobe. No new nodules identified. No concerning masses present. LUNGS: COPD: Severity: Mild Fibrosis: Severity:None Lymph nodes: None Other findings: None RIGHT PLEURAL SPACE: Effusion: None Calcification: None Thickening: None Pneumothorax: None LEFT PLEURAL SPACE: Effusion: None Calcification: None Thickening: None Pneumothorax: None HEART: * Size within normal limits. * No significant coronary artery calcifications. OTHER FINDINGS: Upper abdomen: No significant abnormality Bony thorax: Degenerative changes Supraclavicular region: No significant abnormalityOther: No significant abnormalityI IMPRESSION: 1. Sub-3 mm pulmonary nodules as discussed. 2. Mild emphysema. CT LUNG RAD AND CT CHEST RECOMMENDATION: Lung-Rad 2 Benign Appearance or Behavior: Continue annual sc reening with LDCT in 12 months. S Modifier (other clinically significant findings): [facility], , 12/23/2024 5:19 PM
== END | disposition home or self-care (01) ==
LOC: RADCTMAIN 16:21
PROVIDERS: ATTEND Family Medicine
DX: Z12.2 Encounter for screening for malignant neoplasm of respiratory organs (principal); F17.210 Nicotine dependence, cigarettes, uncomplicated; R91.8 Other nonspecific abnormal finding of lung field; J43.9 Emphysema, unspecified
CPT/HCPCS: 71271